=== PATIENT | female | born 2000 | race Caucasian/White ===

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

== ENCOUNTER 2020-01-22 08:50 | Emergency (ER) | payer MEDICAID, SELFPAY ==
[2020-01-22 08:53] VITALS: BP 151/93; PULSE 95; RESP 18; TEMP 36.6; O2SAT 98; BMI 49.4
--- NOTE | 2020-01-22 09:03 | US_ITS ---
WS: [id number] ULTRASOUND EARLY TECHNIQUE: Transabdominal sonography of the pelvis was performed. Followed by transvaginal sonography to better evaluate the uterus and ovaries. CLINICAL INFORMATION: vag bleeding LMP: 11/06/2019 Beta hCG: Unknown. COMPARISON: Ultrasound July 03, 2019 FINDINGS: Small amount of fluid in the cervix. UTERUS AND GESTATIONAL SAC Intrauterine gestations: Estimated gestational age: 12w0d Estimated delivery [place] rump length (CRL): 5.4 cm. heart motion: 160 BPM. Subchorionic hemorrhage: Subchorionic hematoma right lateral superior uterus. Subchorionic hematoma m easures 2.2 x 0.9 x 1.9 cm Suspected fibroid measuring 2.6 x 2.5 x 2.7 cm OVARIES Normal vascularity in both ovaries. Right ovary: Normal. Left ovary: Normal. FREE FLUID None. US/US OB lmt with transvaginal IMPRESSION: 1. Single live intrauterine . 2. Subchorionic hematoma right lateral superior uterus. Recommend short interv al follow-up. 3. Estimated gestational age; 12w0d. Estimated delivery August 05, 2020 4. Both ovaries are unremarkable. 5. No free fluid in the cul-de-sac.
--- NOTE | 2020-01-22 09:33 | W.ED.PREGNAN ---
HPI - General: Chief complaint: Vaginal Bleeding Stated complaint: 12 weeks /Bleeding Time Seen by Provider: 01/22/20 08:53 Source: patient Mode of arrival: ambulatory Limitations: no limitations History of Present Illness: Associated symptoms: Deny abdominal pain, dysuria, headache(s), malaise, nausea, syncope or vomiting Review of Systems Const: Denies: fever(s), chills, body aches, change in appetite or malaise Eyes: Denies: change in vision ENMT: Denies: throat pain Card: Denies: chest pain, lightheadedness or syncope Resp: Denies: dyspnea, productive cough or wheezing GI: Denies: abdominal pain, nausea or vomiting : Reports: vaginal bleeding; Denies: flank pain, difficulty voiding, dysuria or urinary frequency Musc: Denies: neck pain or back pain Neuro: Denies: headache(s) Psych: Denies: suicidal ideation or homicidal ideation PFSH ED PFSH: Medical History (Updated 01/22/20 @ 10:35 by Doris Menchaca) Anxiety Patient denies medical problems Denies history of: htn,dm,heart,lung,liver,kidney,thyroid,dvt/pe,herpes David-- s/o- w/o herpes hx Surgical History No history of previous surgery Family History Grandmother Thyroid condition maternal Unknown Patient denies medical problems Denies family history of: breast/ovarian/uterine/colon/prostate cancer,HTN,DM,stroke,heart disease,hypercholesterol Social History Smoking and tobacco status: former smoker Quit status (tobacco): has quit using tobacco Year quit tobacco: 03/28/2019 Former quit date comment: Stopped smoking due to Alcohol intake: never Physical Exam Const: COMMON NORMALS: no acute distress, patient oriented x3, no limitations, healthy appearing, alert and well nourished Eye: COMMON NORMALS: Equal, round and reactive pupils present PUPIL: Yes Equal, round and reactive pupils present Neck/C-Spine: COMMON NORMALS: full ROM Lymph: LYMPHATIC: no lymphadenopathy noted Resp: COMMON NORMALS: normal respiratory effort, No retractions, No use of accessory muscles, clear to auscultation bilaterally and percussion normal AUSCULTATION: clear to auscultation bilaterally PERCUSSION: percussion normal Cardio: COMMON NORMALS: regular rate and regular rhythm RATE: regular rate RHYTHM: regular rhythm GI: COMMON NORMALS: Normal to inspection, nondistended, normoactive bowel sounds present, Soft to palpation, non-tender, No hepatosplenomegaly present, no masses and no bruits INSPECTION: Yes normal to inspection AUSCULTATION: Yes normoactive bowel sounds PALPATION: Yes Soft to palpation and Yes No hepatosplenomegaly present : COMMON NORMALS: Yes no CVA tenderness BLADDER/KIDNEY EXAM: Yes no CVA tenderness Back/Pelvis: COMMON NORMALS: no CVA tenderness, thoracic and lumbar spine normal to inspection, no thoracic nor lumbar tenderness, thoraco-lumbar ROM normal and straight leg raise negative bilaterally Extremity: COMMON NORMALS: normal to inspection and full ROM Neuro: COMMON NORMALS: patient oriented x3 SENSORIUM/ORIENTATION: Yes alert Psych: COMMON NORMALS: mental status grossly normal, Normal thought process present, cooperative, normal affect, speech normal, activity/motor behavior normal, denies hallucinations, denies homicidal ideation and denies suicidal ideation SPEECH: Yes normal speech THOUGHT PROCESS: Normal thought process present Skin: COMMON NORMALS: no rashes or lesions noted, no wounds, turgor normal, no jaundice, no petechiae and no mottling GENERAL SKIN EXAM: no rashes or lesions noted and turgor normal Course Vital Signs: Vital signs: Vital Signs Temperature 97.9 F 01/22/20 08:53 Pulse Rate 95 01/22/20 08:53 Respiratory Rate 18 01/22/20 08:53 Blood Pressure 151/93 01/22/20 08:53 Pulse Oximetry 98 01/22/20 08:53 MDM - OB/Uterine Contractions MDM Narrative: Medical decision making narrative: Patient is well-appearing nontoxic in no acute distress. Patient denies any pelvic pain or back pain. Patient's labs do not reveal any concerning findings. Patient's H&H are stable. Patient's ultrasound reveals [facility] [address] [place] [address] Ultrasound Report Signed Patient: Griselda Berg #: [id number] : 2000Acct#:[id number] Age/Sex: FADM Date: 01/22/20 Loc: ERRoom/Bed: Attending Dr: Ordering Provider/Ordering MD: Doris Menchaca NP Date of Service: 01/22/20 Procedure(s): US OB lmt with transvaginal Accession Number(s): [id number] Report Number: [id number] WS: [id number] ULTRASOUND EARLY TECHNIQUE: Transabdominal sonography of the pelvis was performed. Followed by transvaginal sonography to better evaluate the uterus and ovaries. CLINICAL INFORMATION: vag bleeding LMP: 11/06/2019 Beta hCG: Unknown. COMPARISON: Ultrasound July 03, 2019 FINDINGS: Small amount of fluid in the cervix. UTERUS AND GESTATIONAL SAC Intrauterine gestations: Estimated gestational age: 12w0d Estimated delivery [place] rump length (CRL): 5.4 cm. heart motion: 160 BPM. Subchorionic hemorrhage: Subchorionic hematoma right lateral superior uterus. Subchorionic hematoma measures 2.2 x 0.9 x 1.9 cm Suspected fibroid measuring 2.6 x 2.5 x 2.7 cm OVARIES Normal vascularity in both ovaries. Right ovary: Normal. Left ovary: Normal. FREE FLUID None. US/US OB lmt with transvaginal IMPRESSION: 1. Single live intrauterine . 2. Subchorionic hematoma right lateral superior uterus. Recommend short interval follow-up. 3. Estimated gestational age; 12w0d. Estimated delivery August 05, 2020 4. Both ovaries are unremarkable. 5. No free fluid in the cul-de-sac. Patient does not need RhoGam based on patient's Rh type I will have patient follow-up with INJECTION MOLD TECHNICIAN for repeat ultrasound for follow-up I will also advise patient she needs to have her beta-hCG rechecked and 48 to 72 hours. I did discuss with patient return precautions as well as home care. Do not feel any further testing is warranted at this time patient is medically cleared and appropriate for discharge Lab Data: Labs: Lab Results 01/22/20 01/22/20 01/22/20 Range/Units 09:39 09:39 09:39 WBC 8.0 (4.5-13.0) 10^3/ uL RBC 4.28 (4.1-5.3) 10^6/u L Hgb 11.8 (11.5-15.3) g/dL Hct 37.2 (37.0-47.0) % MCV 86.9 (81-99) fL MCH 27.6 L (28.0-34.0) pg MCHC 31.7 (30.0-36.0) g/dL RDW 13.7 (12.1-15.1) % Plt Count 262 (130-400) 10^3/c mm MPV 8.3 (7.4-10.4) fL Neut % (Auto) 72.1 % Lymph % (Auto) 20.7 % [place] % (Auto) 4.9 % Eos % (Auto) 1.6 % Baso % (Auto) 0.3 % Neut # (Auto) 5.74 (1.8-8.0) 10^3/u L Lymph # (Auto) 1.7 (1.5-6.5) 10^3/u L [place] # (Auto) 0.4 (0.2-0.9) 10^3/u L Eos # (Auto) 0.1 (0.0-0.8) 10^3/u L Baso # (Auto) 0.0 (0.0-0.1) 10^3/u L Nucleated RBC % (a uto) 0 % Nucleated RBCs # 0.0 /100WBC Sodium 137 (136-145) mmol/L Potassium 3.8 (3.5-5.1) mmol/L Chloride 104 (98-107) mmol/L Carbon Dioxide 21 L (22-29) mmol/L Anion Gap 15.8 (5-19) BUN 5 L (6-20) mg/dL Creatinine 0.4 L (0.5-0.9) mg/dL GFR Calculation 205.6 H (90-130) mL/min Glucose 87 (65-115) mg/dL Calculated Osmolal ity 281 L (285-295) mOsm/k g Calcium 8.6 (8.5-10.5) mg/dL Ser , Ama i-Qnt 75670.00 mIU/mL Blood Type O Positive Rho(D) Type Positive Discharge Plan Discharge Clinical Impression: Threatened Condition: Stable Prescriptions: No Action prenat.vits,silke,[id number]-[id number] Tablet 1 tab PO DAILY RF: 0 Tylenol Extra Strength 500 mg Tablet 500 mg PO PRN RF: 0 Discharge Orders: Discharge Order (Routine); Ordered 01/22/20 Ordered By: Doris Menchaca Referrals: Lucien Guadalupe MD [Primary Care Provider] - Discharge Diet: Advance as tolerated Discharge Activity: Limit activity as instructed Activity Restrictions/Additional Instructions: Please follow up with OBGYN for repeat Beta HCG in 48-72 hours Please follow up for repeat Ultra Sound Please Pelvic rest as instructed Please reutn with abd pain or worsening of bleeding or any other concerns Coding Level of Care Code ED Finish Carpenter for Chg Fwd Exam Comprehensive
[2020-01-22 09:49] LABS: Basophils % 0.3 %; Eosinophils # 0.1 10^3/uL (0.0-0.8); Eosinophils % 1.6 %; Hematocrit 37.2 % (37.0-47.0); Hemoglobin 11.8 g/dL (11.5-15.3); Lymphocytes # 1.7 10^3/uL (1.5-6.5); Lymphocytes % 20.7 %; Mean Corpuscular HGB Conc 31.7 g/dL (30.0-36.0); Mean Corpuscular Hemoglobin 27.6 pg (28.0-34.0); Mean Corpuscular Volume 86.9 fL (81-99); Mean Platelet Volume 8.3 fL (7.4-10.4); Monocytes # 0.4 10^3/uL (0.2-0.9); Monocytes % 4.9 %; Neutrophils # 5.74 10^3/uL (1.8-8.0); Neutrophils % 72.1 %; Nucleated Red Blood Cells % 0 %; Platelet Count 262 10^3/cmm (130-400); Red Blood Count 4.28 10^6/uL (4.1-5.3); Red Cell Distribution Width 13.7 % (12.1-15.1)
[2020-01-22 10:20] LABS: Anion Gap 15.8 (5-19); Blood Urea Nitrogen 5 mg/dL (6-20); Calcium 8.6 mg/dL (8.5-10.5); Carbon Dioxide 21 mmol/L (22-29); Chloride 104 mmol/L (98-107); Glomerular Filtration Rate 205.6 mL/min (90-130); Glucose 87 mg/dL (65-115); Osmolality Calculated 281 mOsm/kg (285-295); Potassium 3.8 mmol/L (3.5-5.1); Sodium 137 mmol/L (136-145)
== END 2020-01-22 10:51 ==
PROVIDERS: Emergency Provider Registered Nurse; PCP Family Medicine
DX: O20.0 Threatened abortion (principal); Z3A.12 12 weeks gestation of pregnancy; Z87.891 Personal history of nicotine dependence
CPT/HCPCS: 12345; 36415; 76815; 76817; 80048; 84702; 85025; 86850; 86900; 86920; 99281; 99283

== ENCOUNTER 2020-02-28 17:32 | Emergency (ER) | payer BC, MEDICAID, SELFPAY ==
--- NOTE | 2020-02-28 17:39 | US_ITS ---
WS: [id number] LIMITED OBSTETRICAL ULTRASOUND HISTORY: bleeding - VIABILITY. COMPARISON: 01/24/2020. Presentation: Vertex. Cervix: Closed and normal length. Placenta: Anterior, no previa or abruption. Moderate-sized [place] posterior to the placenta. Grade: 0 HEART: FHR of 144 BPM. measurements: BPD = 3.8 cm = 17w4d HC = 14.4 cm = 17w4d Normal amniotic fluid. AGA by ultrasound: 17w4d GALINA by ultrasound: 08/03/2020 US/US OB limited [id number] IMPRESSION: 1. Single intrauterine gestation of 17 weeks 4 days with an EDC of 08/03/2020. 2. Closed cervix. 3. Anterior placenta with no previa or abruption. 4. Normal amniotic fluid.
[2020-02-28 17:46] VITALS: BP 152/109; PULSE 96; RESP 16; TEMP 36.9; O2SAT 99; BMI 47.1
== END 2020-02-28 21:45 ==
LOC: ER 17:39
PROVIDERS: Emergency Provider Emergency Medicine; PCP Family Medicine
DX: Z53.21 Procedure and treatment not carried out due to patient leaving prior to being seen by health care provider (principal)
CPT/HCPCS: 76815; 99281

== ENCOUNTER 2020-06-07 13:25 | Outpatient (CLI) | payer BC, SELFPAY ==
[2020-06-07 13:35] VITALS: BMI 49.8
[2020-06-07 14:01] VITALS: BP 135/80; PULSE 91
[2020-06-07 14:21] VITALS: BP 145/87; PULSE 88
[2020-06-07 14:38] LABS: Add Urine Culture? No; Bacteria Urine TRACE /hpf; Bilirubin Urine Neg (Negative); Blood Urine Neg (Negative); Glucose Urine UA Norm (Normal); Ketones Urine Negative (Negative); Leukocyte Esterase Urine Negative (Negative); Mucus Urine TRACE /hpf; Nitrate Urine Negative (Negative); Protein Urine Neg (Negative); Sulfosalicylic Acid Urine Negative (Negative); Urine Appearance Clear (CLEAR); Urine Color Yellow (Yellow); Urobilinogen Urine Norm (Negative); pH Urine 8.5 (5-7)
[2020-06-07 14:41] VITALS: BP 136/81; PULSE 96
== END 2020-06-07 14:55 | disposition home or self-care (01) ==
LOC: OPOB 13:28 → OBGYN 13:46
PROVIDERS: PCP Family Medicine; Visit Provider Family Medicine
DX: O26.899 Other specified pregnancy related conditions, unspecified trimester (principal); Z3A.00 Weeks of gestation of pregnancy not specified; R52 Pain, unspecified
CPT/HCPCS: 81001; 99211

== ENCOUNTER 2020-07-31 18:36 | Inpatient (IN) | payer BC, MEDICAID, SELFPAY ==
[2020-07-31 18:49] VITALS: BP 138/89; PULSE 105; TEMP 35.6
[2020-07-31 21:44] VITALS: RESP 17
[2020-07-31 21:57] LABS: Basophils % 0.2 %; Eosinophils % 0.4 %; Hematocrit 34.8 % (37.0-47.0); Lymphocytes # 1.7 10^3/uL (1.5-6.5); Lymphocytes % 18.4 %; Mean Corpuscular HGB Conc 31.6 g/dL (30.0-36.0); Mean Corpuscular Volume 82.3 fL (81-99); Mean Platelet Volume 9.2 fL (7.4-10.4); Monocytes # 0.8 10^3/uL (0.2-0.9); Monocytes % 8.3 %; Neutrophils % 72.4 %; Nucleated Red Blood Cells % 0 %; Platelet Count 301 10^3/cmm (130-400); Red Blood Count 4.23 10^6/uL (4.1-5.3); Red Cell Distribution Width 15.6 % (12.1-15.1)
[2020-07-31 22:06] VITALS: BMI 51.3
[2020-07-31] MEDS: miSOPROStol 100 mcg tablet 25 MCG VAGINAL (23:58)
[2020-08-01] VITALS (77 sets, daily range): BP systolic 98–170; BP diastolic 51–110; PULSE 65–93; RESP 17–18; TEMP 35.7–36.6; O2SAT 97–100
[2020-08-01] MEDS: miSOPROStol 100 mcg tablet 25 MCG VAGINAL ×2 (04:10→09:02)
[2020-08-01] MEDS: lactated ringers 1,000 ML 999 ML IV ×2 (13:25→22:47)
[2020-08-01] MEDS: fentaNYL 50 mcg/mL INJ 2mL IVP (13:58)
--- NOTE | 2020-08-01 14:09 | ANES.PREANE2 ---
Pre-Anesthetic Assessment Pre-Anesthetic Assessment: Height/Weight: Height 1.68 m Weight 144.242 kg Temp Pulse Resp BP 97.2 F L 72 18 153/99 08/01/20 13:09 08/01/20 14:03 08/01/20 13:58 08/01/20 14:03 Preop Diagnosis: IUP Proposed Procedure: epidrual Was Beta Marian taken within 24 hours: N/A Was Clonidine taken within 24 hours: N/A Social: Social History: Tobacco (history, quit this ) Exam: Pre-Anes Outpt Exam: alert, oriented x 3, clear to auscultation bilaterally and regular rate & rhythm Airway: Submandibular: WNL Cervical ROM: WNL MP: 3 Dentition: Full Pulmonary: Pulmonary: Sleep apnea CV/HEM: CV/HEM: HTN ( related but no meds needed) : : None reported Hepatic: Hepatic: None reported GI: GI: GERD Metabolic: Metabolic: Morbid obesity Musc/skel: Musc/skel: None reported Neuropsych: Neuropsych: Anxiety Anesthetic Plan: ASA status: 3 Anesthesia: Regional (specify below) Risk of > 500 ml blood loss (7ml/kg in children): No Meds/Allergies Current Medications: Current Medications Generic Name Dose Route Start Last Admin Trade Name Freq PRN Reason Stop Dose Admin Fentanyl 25 - 100 mcg 07/31/20 21:44 08/01/20 13:58 Fentanyl 50 Mcg/ Ml Inj 2ml IVP 25 mcg Q1H PRN Administration SEVERE PAIN Lactated Ringer's 1,000 mls @ 999 m ls/hr 08/01/20 13:12 08/01/20 13:25 Lactated Ringers IV 999 mls/hr .Q1H1M PRN Administration See label comment s PFSH Anesthesia PFSH: Medical History (Updated 01/30/20 @ 00:00 by ) Anxiety Patient denies medical problems Denies history of: htn,dm,heart,lung,liver,kidney,thyroid,dvt/pe,herpes Advid-- s/o- w/o herpes hx Surgical History No history of previous surgery Family History Grandmother Thyroid condition maternal Unknown Patient denies medical problems Denies family history of: breast/ovarian/uterine/colon/prostate cancer,HTN,DM,stroke,heart disease,hypercholesterol Social History (Updated 02/28/20 @ 17:52 by Jose Armando Palomares RN) Smoking and tobacco status: light tobacco smoker Quit status (tobacco): has quit using tobacco Year quit tobacco: 03/28/2019 Former quit date comment: Stopped smoking due to Alcohol intake: never Female Reproductive History: : 4 Data Anesthesia CBC & Chem 7: 07/31/20 19:56 Other Labs: Laboratory Results - last 48 hr 07/31/20 19:56 WBC 9.0 RBC 4.23 Hgb 11.0 L Hct 34.8 L MCV 82.3 MCH 26.0 L MCHC 31.6 RDW 15.6 H Plt Count 301 MPV 9.2 Neut % (Auto) 72.4 Lymph % (Auto) 18.4 [place] % (Auto) 8.3 Eos % (Auto) 0.4 Baso % (Auto) 0.2 Neut # (Auto) 6.50 Lymph # (Auto) 1.7 [place] # (Auto) 0.8 Eos # (Auto) 0.0 Baso # (Auto) 0.0 Nucleated RBC % (auto) 0 Nucleated RBCs # 0.0 Cardiac Studies: No Data to Display
--- NOTE | 2020-08-01 14:41 | ANES.PROC ---
Anesthesia Procedures Procedure/Date: 08/01/20 epidural Procedure Narrative: epidural complete, bolus given, epidural pump initiated with MARKETING INSTRUCTOR education given, vitals taken during procedure using OBIX system and satisfactory throughout, patient admits to decrease pain, report of procedure to OB RN Epidural: Time Out Performed: Yes Consents Signed: Procedure Consent Consent: requested by attending/covering physician, from patient, risks and benefits reviewed and patient agrees to proceed Lumbar Level: L3-L4 Epidural position: sitting Epidural procedure: sterile prep of area, 1% lidocaine to numb the area (3 mL), 18 g needle, negative for paresthesia passed, neg for paresthesia, test dose given, 1.5% xylocaine 1:200k epi (5 mL), 0.2% Ropivacaine bolus ml (5 mL), placed PCEA, no systemic response, sterile dressing applied, L.U.D. no apparent complications and 0.2% Ropiavacaine @ mls/hr (13 mL/hr)
[2020-08-01] MEDS: dextrose 5%-lactated ringers 1,000 ML 125 ML IV (14:45)
[2020-08-01] MEDS: oxytocin 30 UNIT/500 ML BAG IV (17:00)
[2020-08-01] MEDS: ondansetron 2 mg/ML SDV 2 mL 4 MG IVP (19:40)
--- NOTE | 2020-08-01 22:58 | PM.HP ---
Providers/Chief Complaint Admitting Physician: Lucien Guadalupe MD Primary Care Provider: Lucien Guadalupe MD Chief Complaint: INDUCTION History of Present Illness Griselda Berg is a 20 year old female who is a 4, para 1 with an EDC of 08/05/2020. She was admitted yesterday evening for attempted misoprostol cervical ripening for induction secondary to term and suspected large infant. She has a history of -induced hypertension during her last which required induction at 37 weeks gestation. She has had no problems through this with gestational hypertension. She has received 3 doses of misoprostol 25 mcg since admission. She was then started on Pitocin augmentation and presently is on a low dose Pitocin. She had spontaneous rupture membranes at around 1055 this morning with clear fluid obtained. She has slowly dilated throughout the day and presently is about 7 cm dilated. She does have epidural anesthesia which was placed earlier this afternoon. Overall, the heart tones have been reassuring. However, she has had some decelerations off and on and the presently does not tolerate much position change. Presently she remains at approximately -1 station. Maternal blood type was O+ with antibody screen negative. Hepatitis B, hepatitis C, RPR and HIV were negative. Rubella is immune and group B strep was negative. Her Glucola screen at 28 weeks was 108. Review of Systems Const: Denies: fever(s), chills, body aches, change in appetite or fatigue Eyes: Denies: change in vision or eye redness ENMT: Denies: throat pain or odynophagia Card: Denies: chest pain, palpitations or edema Resp: Denies: dyspnea, productive cough or non-productive cough GI: Reports: abdominal pain (Contraction pain which is improved greatly with epidural anesthesia.) and heartburn (Controlled with omeprazole.); Denies: constipation : Reports: amenorrhea (She is .); Denies: flank pain or urinary frequency Musc: Denies: neck pain, back pain or extremity swelling Neuro: Denies: headache(s) or seizure-like activity Psych: Denies: anxiety or depression Bennett/Lymph: Denies: easy bruising or enlarged lymph nodes All/Imm: Denies: urticaria or facial swelling Medications/Allergies Home Medications Medication Instructions Recorded Confirmed Last Taken Type prenat.vits,silke,bnz-izax-cqoef 1 tab PO DAILY 03/10/19 01/22/20 06/06/20 08:00 History acetaminophen [Tylenol Extra 500 mg PO PRN 01/22/20 01/22/20 Unknown History Strength] Allergies Allergy/AdvReac Type Severity Reaction Status Date / Time strawberry Allergy ALGY-Difficulty Verified 01/22/20 09:52 Swallowing PFSH Acute PFSH: Medical History (Updated 08/01/20 @ 23:09 by Lucien Guadalupe MD) Anxiety Patient denies medical problems Denies history of: htn,dm,heart,lung,liver,kidney,thyroid,dvt/pe,herpes David-- s/o- w/o herpes hx Surgical History No history of previous surgery Family History Grandmother Thyroid condition maternal Unknown Patient denies medical problems Denies family history of: breast/ovarian/uterine/colon/prostate cancer,HTN,DM,stroke,heart disease,hypercholesterol Social History (Updated 02/28/20 @ 17:52 by Jose Armando Palomares RN) Smoking and tobacco status: light tobacco smoker Quit status (tobacco): has quit using tobacco Year quit tobacco: 03/28/2019 Former quit date comment: Stopped smoking due to Alcohol intake: never Female Reproductive History: : 4 Vitals/I&O/Wt Last Vital Signs Temp 97.9 F 08/01/20 22:06 Pulse 82 08/01/20 22:33 Resp 18 08/01/20 13:58 BP 124/64 08/01/20 22:33 Pulse Ox 100 08/01/20 15:16 08/01/20 08/01/20 08/01/20 06:59 14:59 22:59 Intake Total 1000 / 1000 1087.433 / 2087.433 Output Total 300 / 300 Balance 1000 / 1000 787.433 / 1787.433 Weight last 48 hrs Weight 144.242 kg Physical Exam Const: COMMON NORMALS: no acute distress, alert and well nourished GENERAL APPEARANCE: cooperative, comfortable (She has epidural anesthesia in place.) and well kempt HENMT: COMMON NORMALS: hearing grossly normal bilaterally and moist oral mucous membranes Lymph: LYMPHATIC: no lymphadenopathy noted Resp: COMMON NORMALS: normal respiratory effort, No retractions, No use of accessory muscles and clear to auscultation bilaterally Cardio: COMMON NORMALS: regular rate, regular rhythm and No murmurs present (Cardio) GI: COMMON NORMALS: Soft to palpation and non-tender; negative for no masses (.) : COMMON NORMALS: Yes no CVA tenderness and Yes normal external appearance OB/EXTERNAL & SPECULUM: external exam normal; no bleeding MANUAL OB EXAM: dilated 7 cm, effaced 75% and station -1 AMNIOTIC FLUID: clear Back/Pelvis: COMMON NORMALS: no CVA tenderness and thoracic and lumbar spine normal to inspection Extremity: COMMON NORMALS: normal to inspection, full ROM, capillary refill normal and no pedal edema Neuro: COMMON NORMALS: patient oriented x3, CN's II-XII intact bilaterally, moves all extremities, no focal motor deficits and no sensory deficits noted Psych: COMMON NORMALS: mental status grossly normal, Normal thought process present, cooperative and normal affect Urinary Catheter Management^: Cifuentes: Cath Placed During This Visit: yes Reason for Continuing Indwelling Catheter: Required Immobilization for Trauma or Surgery or Anesthesia Urinary Catheter Date of Insertion: 08/01/20 Urinary Catheter Time of Insertion: 15:00 Data : 07/31/20 19:56 A&P Assessment and plan (1) Term : Patient is doing fair right now but infant is having some more questionable decelerations. If she does not deliver soon we may need to proceed with section secondary to failure to descend and nonreassuring heart tones. Presently, the variability is good however. Status: Acute Attestations Medical Necessity Statement*: This patient is 7 cm dilated in active labor and requires hospitalization. She will be here for greater than 2 midnights. Time Spent in Patient Care: 16 - 35 minutes Coding Level of Care Code Acute Distribution Transformer Assembler for Chg Fwd Diagnoses Term Z34.90
[2020-08-02] VITALS (54 sets, daily range): BP systolic 104–142; BP diastolic 56–87; PULSE 67–98; RESP 16–18; TEMP 36.1–37.4; O2SAT 94–100
[2020-08-02] MEDS: dextrose 5%-lactated ringers 1,000 ML 125 ML IV (05:12)
[2020-08-02] MEDS: lactated ringers 1,000 ML 999 ML IV (06:05)
[2020-08-02] MEDS: citric acid-sodium citrate 30 mL UDC PO (06:55)
[2020-08-02] MEDS: famotidine 20 mg/2 mL INJ IVP (06:55)
[2020-08-02] MEDS: metoclopramide 5 mg/mL SDV 2 mL 10 MG IVP (06:55)
[2020-08-02] MEDS: lactated ringers 1,000 ML 125 ML IV (07:06)
--- NOTE | 2020-08-02 08:32 | PM.OP ---
Operative Report Date of procedure: August 02, 2020 Pre-op Diagnosis: Failure to progress Post-op diagnosis: same Procedure Done: Primary low transverse Via Pfannenstiel skin incision Specimens removed/disposition: OP vertex weight 3250 g, 7 pounds 3 ounces, Apgars 8 and 9 Anesthesia: Epidural Estimated blood loss (mL): 600 IV fluids (mL): 1,000 Urine output (mL): 200 Condition: stable Disposition: floor Procedure: After informed consent the patient was taken to the OR where adequate epidural anesthesia was verified. She was prepped and draped in normal sterile fashion in dorsal supine position with a left lateral tilt. A Pfannenstiel skin incision was made and carried through to the underlying layer of fascia sharply. The fascial incision was extended laterally using the Mayos. The fascia was grasped with Tom clamps and the underlying rectus muscles were dissected off taking care to avoid injury to the underlying tissue. The peritoneum was entered bluntly using a hemostat. The incision site was then manually stretched. The bladder blade was inserted and the vesicouterine peritoneum was identified and entered sharply using the Metzenbaums. The bladder flap was then created digitally. The bladder blade was reinserted. Uterine incision was made in a transverse fashion in the lower uterine segment. Rupture of membranes was performed sharply and clear fluid was noted. Large cord was bulging from the incision site. The 's head was in OP position and the 's head was delivered atraumatically with the rest of the following immediately. The was then suctioned at delivery and the cord was clamped and cut. The infant was handed to the waiting pediatric nurse. Cord blood was obtained. The placenta was delivered with fundal pressure. The uterus was exteriorized from the abdomen and a dry sponge was used to clear the uterus of clots and debris. Uterine incision was then repaired using 0 chromic in a running locked fashion. A second layer of the same suture was used in an imbricating manner. There was a small amount of bleeding on both the left lateral and right aspects of the incision and 2 [id number] sutures using 0 chromic were performed for hemostasis. The uterus was then returned to the abdomen and reinspected for hemostasis. Irrigation was used to clear the gutters of clots and debris and the uterine incision was reinspected. The peritoneum was then reapproximated using 4-0 Vicryl in a running fashion. There was a moderate amount of bleeding from the midline rectus muscle that did not resolve using the Bovie. A single [id number] suture of 0 chromic was done for hemostasis. The subfascial tissue was then reinspected for hemostasis and the fascia was reapproximated using 0 Vicryl in a running fashion. The subcutaneous tissue was irrigated and any small bleeders were coagulated using the Bovie. The subcutaneous tissue was then reapproximated using 4-0 Vicryl in a running fashion. The skin was then reapproximated using 4-0 Vicryl on a Pasquale needle. Steri-Strips and a pressure bandage were applied and patient went to recovery in good condition. Sponge instrument and needle counts were correct. Associated Problem List Diagnoses (1) Failure to progress in second stage of labor: (2) Term : (3) Tobacco smoking affecting : (4) Obesity affecting : Qualifiers: Trimester: third trimester Qualified Code(s): O99.213 - Obesity complicating , third trimester (5) Supervision of other high risk pregnancies, third trimester:
--- NOTE | 2020-08-02 15:22 | PC.RESP ---
Smoking Cessation information sent to patient.
[2020-08-02] MEDS: ibuprofen 800 mg tablet PO ×2 (15:57→22:23)
[2020-08-02] MEDS: HYDROcodone-acetaminophen 5-325 mg Tablet PO (16:50)
[2020-08-02] MEDS: simethicone 80 mg Chew PO (16:50)
[2020-08-02] MEDS: docusate sodium 100 mg Capsule PO (18:01)
[2020-08-02] MEDS: ferrous sulfate EC 325 mg Tablet PO (18:01)
[2020-08-02 20:51] LABS: Hematocrit 30.8 % (37.0-47.0); Hemoglobin 9.6 g/dL (11.5-15.3); Mean Corpuscular HGB Conc 31.2 g/dL (30.0-36.0); Mean Corpuscular Hemoglobin 26.1 pg (28.0-34.0); Mean Corpuscular Volume 83.7 fL (81-99); Mean Platelet Volume 8.9 fL (7.4-10.4); Platelet Count 227 10^3/cmm (130-400); Red Blood Count 3.68 10^6/uL (4.1-5.3); Red Cell Distribution Width 15.4 % (12.1-15.1)
[2020-08-03] VITALS (9 sets, daily range): BP systolic 125–158; BP diastolic 80–95; PULSE 81–102; RESP 16–20; TEMP 36.6–36.9; O2SAT 97–99
[2020-08-03] MEDS: docusate sodium 100 mg Capsule PO ×2 (08:09→17:42)
[2020-08-03] MEDS: HYDROcodone-acetaminophen 5-325 mg Tablet PO ×2 (08:09→17:42)
[2020-08-03] MEDS: ferrous sulfate EC 325 mg Tablet PO ×2 (08:10→17:42)
[2020-08-03] MEDS: ibuprofen 800 mg tablet PO ×2 (08:10→16:04)
[2020-08-03] MEDS: prenatal vitamin Capsule 1 CAP PO (08:10)
--- NOTE | 2020-08-03 12:15 | P.PN_ITS ---
Subjective Subjective: Interval history: Doing well. Passing lots of flatus. Ambulating, tolerating a regular diet. Vitals/I&O/Wt Last Vital Signs Temp 98.5 F 08/03/20 08:00 Pulse 102 H 08/03/20 08:00 Resp 20 H 08/03/20 08:00 BP 132/89 08/03/20 08:00 Pulse Ox 97 08/03/20 04:00 08/02/20 08/03/20 08/03/20 22:59 06:59 14:59 Output Total 300 / 1700 800 / 2500 Balance -300 / 478.000 -800 / -322.000 Physical Exam Const: COMMON NORMALS: no acute distress and alert GENERAL APPEARANCE: cooperative and comfortable HENMT: COMMON NORMALS: normocephalic HEAD & SCALP: normocephalic Eye: COMMON NORMALS: Equal, round and reactive pupils present and EOMs intact bilaterally PUPIL: Yes Equal, round and reactive pupils present Resp: COMMON NORMALS: normal respiratory effort and clear to auscultation bilaterally AUSCULTATION: clear to auscultation bilaterally Cardio: COMMON NORMALS: regular rate and regular rhythm RATE: regular rate RHYTHM: regular rhythm GI: COMMON NORMALS: Soft to palpation and non-tender (Incision clean dry and intact) AUSCULTATION: Yes normoactive bowel sounds PALPATION: Yes Soft to palpation Extremity: GENERAL: No calf tenderness and Yes edema (vs obesity, nonpitting) Neuro: SENSORIUM/ORIENTATION: Yes alert Urinary Catheter Management^: Cifuentes: Cath Placed During This Visit: yes, but has since been removed by the nurse Reason for Continuing Indwelling Catheter: Decision to DC Catheter Urinary Catheter Date of Insertion: 08/01/20 Urinary Catheter Time of Insertion: 15:00 Date Urinary Catheter Removed: 08/02/20 Time Urinary Catheter Discontinued: 14:22 Data : 08/02/20 20:35 A&P Assessment and plan (1) Failure to progress in second stage of labor: Status: Acute (2) Term : Status: Acute (3) Tobacco smoking affecting : Status: Acute (4) Obesity affecting : Status: Acute Qualifiers: Trimester: third trimester Qualified Code(s): O99.213 - Obesity complicating , third trimester (5) Status post section routine follow-up: Postop day #1 doing well. The patient is very anxious to get home. Think if she is doing well this evening and her pain is well controlled still she can be discharged home. Status: Acute Attestations Medical Necessity Statement*: Routine postoperative and care. 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
--- NOTE | 2020-08-03 19:04 | PC.NURSE ---
Called Dr. Sims with vital signs, MD orders for patient to discharge home.
--- NOTE | 2020-08-28 12:23 | PM.DCS ---
Discharge Providers Date of Admission: 07/31/20 18:36 Date of Discharge: August 03, 2020 Attending Provider at Admission: Lucien Guadalupe MD Attending Provider at Discharge: Lucien Guadalupe MD Primary Care Provider: Lucien Guadalupe MD Diagnoses at Discharge Discharge Diagnosis (1) Failure to progress in second stage of labor: Status: Acute (2) Term : Status: Acute (3) Tobacco smoking affecting : Status: Acute Permanent problem details: Pre-: 7 cig/day OBI: 3 cig/day (4) Obesity affecting : Status: Acute Qualifiers: Trimester: third trimester Qualified Code(s): O99.213 - Obesity complicating , third trimester (5) Status post section routine follow-up: Status: Acute Reason for Visit Reason for Visit: INDUCTION Hospital Course Hospital Course This is a 20-year-old G4 now P2 who underwent primary section secondary to failure to progress. The patient had an uncomplicated postoperative course. She was ambulating, tolerating a regular diet, had very good pain control and was requesting discharge home. Physical Exam Narrative: EXAM NARRATIVE: She is alert and sitting up in bed and appears comfortable. Her abdomen really is not tender. Her incision is clean dry and intact. She does have 1+ pitting edema that is difficult to distinguish from her obesity. No calf tenderness. Urinary Catheter Management^: Cifuentes: Cath Placed During This Visit: yes, but has since been removed by the nurse Reason for Continuing Indwelling Catheter: Decision to DC Catheter Urinary Catheter Date of Insertion: 08/01/20 Urinary Catheter Time of Insertion: 15:00 Date Urinary Catheter Removed: 08/02/20 Time Urinary Catheter Discontinued: 14:22 Discharge Data Vitals: Last Vital Signs Temp 97.8 F 08/03/20 19:03 Pulse 92 08/03/20 19:03 Resp 17 08/03/20 19:03 BP 130/84 08/03/20 19:03 Pulse Ox 98 08/03/20 19:03 Discharge Plan Discharge Patient Disposition: Home Condition: Stable Prescriptions: New ibuprofen 800 mg Tablet 800 mg PO TID PRN (Reason: Abdominal Discomfort) Qty: 30 RF: 0 hydrocodone-acetaminophen 5-325 mg Tablet 1 - 2 tab PO Q4H PRN (Reason: Moderate To Severe Pain) Qty: 15 RF: 0 DOK 100 mg Capsule 100 mg PO BID Qty: 60 RF: 0 Continued prenat.vits,silke,[id number]-phbt-pqzmm Tablet 1 tab PO DAILY RF: 0 Discontinued acetaminophen [Tylenol Extra Strength] 500 mg Tablet 500 mg PO PRN RF: 0 Discharge Orders: Discharge Order (Routine); Ordered 08/03/20 Ordered By: Lina Sims Referrals: Lina Sims MD [Physician] - 08/07/20 10:15 am (Your incision check appointment has been scheduled for 08/07/2020 at 10:[address] Sims.) Lucien Guadalupe MD [Primary Care Provider] - 09/09/20 2:30 pm (Your 6 week check has been scheduled for 09/09/2020 at 2:[address] Guadalupe.) Discharge Diet: Usual diet Discharge Activity: Limit activity as instructed Patient Instructions: Depression (GEN), Pre-eclampsia and Eclampsia (DC), Bleeding (DC), OB - John/Bethany, OB Discharge Report, OB Anesthesia Instructions, OB Food/Drug Interaction Guide, Opioid Safety, OB Home Care, OB Proud Parent Packet Discharge Attestations Time Spent in Discharge Care*: less than 30 min Quality Metrics Clinical Quality Measures During this hospital stay, did patient experience: None Coding Level of Care Code Acute Chg FW DC note Diagnoses Failure to progress in second stage of labor O62.2 Term Z34.90 Tobacco smoking affecting O99.330 Obesity affecting O99.213 Trimester: third trimester Status post section routine follow-up Z39.2; Z98.891
== END 2020-08-03 19:09 | disposition home or self-care (01) | DRG 788 ==
PROVIDERS: Family Medicine; Admitting Provider Family Medicine; PCP Family Medicine; Visit Provider Family Medicine
PROC: 10D00Z1 Extraction of Products of Conception, Low, Open Approach (ICD-10-PCS; CPT 59514; principal; 2020-08-02 07:30)
DX: O32.4XX0 Maternal care for high head at term, not applicable or unspecified (principal); Z37.0 Single live birth; O76 Abnormality in fetal heart rate and rhythm complicating labor and delivery; O99.344 Other mental disorders complicating childbirth; F41.9 Anxiety disorder, unspecified; O99.334 Smoking (tobacco) complicating childbirth; F17.210 Nicotine dependence, cigarettes, uncomplicated; O99.214 Obesity complicating childbirth; E66.01 Morbid (severe) obesity due to excess calories; Z3A.39 39 weeks gestation of pregnancy
CPT/HCPCS: 36415; 51702; 59025; 59409; 85025; 85027; 99211; J0690; J1885; J2274; J2405; J2765; J2795; J3010; J3490; J7030

== ENCOUNTER → 2020-12-09 09:09 | Outpatient (BNVA) | payer BC, MEDICAID, SELFPAY | PROVIDERS: PCP Family Medicine; Referring Provider Family Medicine; Visit Provider Specialist | DX: R56.9 Unspecified convulsions (principal); F17.200 Nicotine dependence, unspecified, uncomplicated | CPT/HCPCS: 95816 ==

== ENCOUNTER → 2021-07-30 12:31 | Outpatient (BNVA) | payer BC, MEDICAID, SELFPAY | PROVIDERS: PCP Family Medicine; Referring Provider Family Medicine; Visit Provider Specialist | DX: G62.89 Other specified polyneuropathies (principal) | CPT/HCPCS: 95913 ==

== ENCOUNTER → 2021-08-30 15:36 | Outpatient (BNVA) | payer BC, MEDICAID, SELFPAY | PROVIDERS: PCP Family Medicine; Visit Provider Registered Nurse Neonatal Intensive Care | DX: Z32.00 Encounter for pregnancy test, result unknown (principal) | CPT/HCPCS: 81025 ==

== ENCOUNTER 2021-09-24 17:46 | Emergency (ER) | payer BC, MEDICAID, SELFPAY ==
[2021-09-24 18:44] VITALS: PULSE 64; RESP 18; TEMP 36.2; O2SAT 100; BMI 45.9
--- NOTE | 2021-09-24 19:19 | USR_ITS ---
PROCEDURE INFORMATION: Exam: US First Trimester, Transabdominal and US , Transvaginal Exam date and time: 09/24/2021 8:10 PM Age: 21 years old Clinical indication: Lmp or gestational age (in weeks): 11w 2d; Other: Passing clots today; ; Patient HX: G5-p2-a2-l2; Additional info: Threatened miscarriage LABS AND CLINICAL REPORTS: Serum Choriogonadotropin (HCG): 50270 mIU/mL Last menstrual period start date: 07/07/2021 Gestational age (Established): 11 w 2 d Estimated due date (Established): 04/13/2022 TECHNIQUE: Imaging protocol: Real-time transabdominal obstetrical ultrasound of the maternal pelvis and a first trimester , less than 14 weeks 0 days, with image documentation. Transvaginal imaging was used for better evaluation of the fetus, adnexa, and/or cervix. COMPARISON: US OB >= 14 weeks fetus [id number] 03/18/2020 11:26 AM FINDINGS: Gestation: Intrauterine gestation is visualized. pole is visualized. No yolk sac is visualized. Embryonic/ heart rate: 167 bpm Extra-embryonic membranes/Placenta: Unremarkable. No subchorionic bleed. Amniotic fluid: Suspected small amniotic band without limb involvement, consider follow-up exam for reassessment. BIOMETRY: Gestational age (AUA): 11 w 3 d Estimated due date (AUA): 04/12/2022 [place]-Rump length (CRL): 47.8 mm. EGA (CRL) is 11 w 3 d MATERNAL: Uterus: Uterus measures 12.4 cm x 6.7 cm x 8.5 cm. Cervix: Cervical length measures 5 cm. Right ovary/adnexa: Right ovary not visualized. Left ovary/adnexa: Left adnexa 10.6 cm cyst may be corpus luteal in nature, color blood flow is seen about the structure. Intraperitoneal space: No intraperitoneal free fluid. US/US OB <= 14 weeks fetus [id number] IMPRESSION: 1. Single intrauterine without acute abnormality. 2. Left adnexa 10.6 cm cyst may be corpus luteal in nature, color blood flow is seen about the structure. 3. Right ovary not visualized. 4. Suspected small amniotic band without limb involvement, consider follow-up exam for reassessment.
--- NOTE | 2021-09-24 19:24 | ED_ITS ---
HPI - General: Chief complaint: Vaginal Bleeding Stated complaint: 11 Weeks spotting Time Seen by Provider: 09/24/21 18:45 Source: patient Mode of arrival: ambulatory Limitations: no limitations History of Present Illness: 21-year-old female who is roughly 10 weeks . She states that she has had some bleeding today and passing some small clots. She denies any vomiting or diarrhea. Denies any previous miscarriages. States she had some slight cramping that is improved denies any pain currently denies any lightheadedness. Associated symptoms: Deny abdominal pain, headache(s), nausea or vomiting Review of Systems Const: Denies: fever(s), chills, body aches or change in appetite Eyes: Denies: blurry vision or eye discomfort ENMT: Denies: throat pain or dental pain Card: Denies: chest pain Resp: Denies: dyspnea GI: Denies: abdominal pain, nausea, vomiting or diarrhea : Reports: vaginal bleeding Musc: Denies: neck pain or back pain Skin/Breast: Denies: rash Neuro: Denies: headache(s) Psych: Denies: depression Bennett/Lymph: Denies: easy bruising All/Imm: Denies: urticaria PFSH ED PFSH: Medical History (Updated 09/24/21 @ 20:59 by Krista Valdez MD) Anxiety Patient denies medical problems Denies history of: htn,dm,heart,lung,liver,kidney,thyroid,dvt/pe,herpes David-- s/o- w/o herpes hx Surgical History No history of previous surgery Family History Grandmother Thyroid condition maternal Unknown Patient denies medical problems Denies family history of: breast/ovarian/uterine/colon/prostate cancer,HTN,DM,stroke,heart disease,hypercholesterol Social History Smoking and tobacco status: current every day smoker Quit status (tobacco): has quit using tobacco Year quit tobacco: 03/28/2019 Former quit date comment: Stopped smoking due to Alcohol intake: never Physical Exam Const: COMMON NORMALS: no acute distress, patient oriented x3 and healthy appearing HENMT: COMMON NORMALS: normocephalic and atraumatic HEAD & SCALP: normocephalic and atraumatic Eye: COMMON NORMALS: Equal, round and reactive pupils present and EOMs intact bilaterally PUPIL: Yes Equal, round and reactive pupils present Neck/C-Spine: COMMON NORMALS: full ROM and supple Chest: COMMONS NORMALS: normal inspection of the chest and normal palpation of entire chest wall Resp: COMMON NORMALS: normal respiratory effort, No retractions, No use of accessory muscles and clear to auscultation bilaterally AUSCULTATION: clear to auscultation bilaterally Cardio: COMMON NORMALS: regular rate, regular rhythm and No murmurs present (Cardio) RATE: regular rate RHYTHM: regular rhythm GI: COMMON NORMALS: Normal to inspection, nondistended, normoactive bowel sounds present, Soft to palpation, non-tender and no masses PALPATION: Yes Soft to palpation Extremity: COMMON NORMALS: normal to inspection and full ROM Neuro: COMMON NORMALS: patient oriented x3, moves all extremities and no focal motor deficits Psych: COMMON NORMALS: mental status grossly normal, Normal thought process present and cooperative THOUGHT PROCESS: Normal thought process present Skin: COMMON NORMALS: no rashes or lesions noted and no wounds GENERAL SKIN EXAM: no rashes or lesions noted Course Vital Signs: Vital signs: Vital Signs Temperature 97.1 F L 09/24/21 18:44 Pulse Rate 64 09/24/21 18:44 Respiratory Rate 18 09/24/21 18:44 Pulse Oximetry 100 09/24/21 18:44 Oxygen Delivery Me thod 09/24/21 18:44 MDM - OB/Uterine Contractions Medical Decision Making Patient presents here with some vaginal bleeding with a threatened miscarriage h er ultrasound showed IUP consistent with dates with good heart tones. She did have a mass in her left ovary likely a cyst patient is having minimal pain her bleeding is improved I think less likely that has been a heterotropic ectopic . She is to follow-up with her OB in 1 to 2 days and return if worsening she understands agrees to plan. Lab Data : 09/24/21 19:04 Laboratory Results WBC 8.8 10^3/uL (4.0-10.0) 09/24/21 19:04 RBC 4.41 10^6/uL (4.1-5.3) 09/24/21 19:04 Hgb 12.2 g/dL (11.5-15.3) 09/24/21 19:04 Hct 38.4 % (37.0-47.0) 09/24/21 19:04 MCV 87.1 fl (81-99) 09/24/21 19:04 MCH 27.7 pg (28.0-34.0) L 09/24/21 19:04 MCHC 31.8 g/dL (30.0-36.0) 09/24/21 19:04 RDW 13.3 % (12.1-15.1) 09/24/21 19:04 Plt Count 281 10^3/cmm (130-400) 09/24/21 19:04 MPV 8.6 fL (7.4-10.4) 09/24/21 19:04 Neut % (Auto) 71.9 % 09/24/21 19:04 Lymph % (Auto) 20.3 % 09/24/21 19:04 [place] % (Auto) 4.3 % 09/24/21 19:04 Eos % (Auto) 3.0 % 09/24/21 19:04 Baso % (Auto) 0.3 % 09/24/21 19:04 Neut # (Auto) 6.31 10^3/uL (1.8-7.7) 09/24/21 19:04 Lymph # (Auto) 1.8 10^3/uL (0.8-4.8) 09/24/21 19:04 [place] # (Auto) 0.4 10^3/uL (0.2-0.9) 09/24/21 19:04 Eos # (Auto) 0.3 10^3/uL (0.0-0.8) 09/24/21 19:04 Baso # (Auto) 0.0 10^3/uL (0.0-0.1) 09/24/21 19:04 Nucleated RBC % (auto) 0 % 09/24/21 19:04 Nucleated RBCs # 0.0 /100WBC 09/24/21 19:04 Ser , Semi-Qnt 66336.00 mIU/mL 09/24/21 19:04 Discharge Plan Discharge Patient Disposition: Home Clinical Impression: Threatened miscarriage Condition: Stable Prescriptions: No Action ondansetron 8 mg tablet,disintegrating 8 mg PO Q8H PRN (Reason: nausea and vomiting) 4 Days Qty: 14 0RF ibuprofen 800 mg Tablet 800 mg PO TID PRN (Reason: Abdominal Discomfort) Qty: 30 0RF Discharge Orders: Discharge ED (Routine); Ordered 09/24/21 Ordered By: Krista Valdez Referrals: Lucien Guadalupe MD [Primary Care Provider] - Discharge Diet: Advance as tolerated Discharge Activity: Resume usual activity Patient Instructions: Threatened Miscarriage (ED) Stand Alone Forms: Work/School Release Coding Level of Care Code ED Materials Analyst for Chg Fwd Exam Comprehensive
[2021-09-24 19:45] LABS: Basophils % 0.3 %; Eosinophils # 0.3 10^3/uL (0.0-0.8); Hematocrit 38.4 % (37.0-47.0); Hemoglobin 12.2 g/dL (11.5-15.3); Lymphocytes # 1.8 10^3/uL (0.8-4.8); Lymphocytes % 20.3 %; Mean Corpuscular HGB Conc 31.8 g/dL (30.0-36.0); Mean Corpuscular Hemoglobin 27.7 pg (28.0-34.0); Mean Corpuscular Volume 87.1 fl (81-99); Mean Platelet Volume 8.6 fL (7.4-10.4); Monocytes # 0.4 10^3/uL (0.2-0.9); Monocytes % 4.3 %; Neutrophils # 6.31 10^3/uL (1.8-7.7); Neutrophils % 71.9 %; Nucleated Red Blood Cells % 0 %; Platelet Count 281 10^3/cmm (130-400); Red Blood Count 4.41 10^6/uL (4.1-5.3); Red Cell Distribution Width 13.3 % (12.1-15.1); White Blood Count 8.8 10^3/uL (4.0-10.0)
[2021-09-24 21:13] VITALS: BP 150/120; PULSE 78; RESP 18; O2SAT 100
== END 2021-09-24 21:14 | disposition home or self-care (01) ==
PROVIDERS: Emergency Provider Emergency Medicine; PCP Family Medicine
DX: O20.0 Threatened abortion (principal); Z3A.11 11 weeks gestation of pregnancy; O99.331 Smoking (tobacco) complicating pregnancy, first trimester; F17.210 Nicotine dependence, cigarettes, uncomplicated
CPT/HCPCS: 36415; 76801; 84702; 85025; 99284

== ENCOUNTER 2021-10-02 06:13 | Emergency (ER) | payer BC, MEDICAID, SELFPAY ==
[2021-10-02 06:21] VITALS: BP 156/114; PULSE 91; RESP 22; TEMP 37; O2SAT 100; BMI 47.2
--- NOTE | 2021-10-02 06:22 | PC.NURSE ---
patient blood glucose is 90
[2021-10-02 06:26] VITALS: BP 135/73; PULSE 78; RESP 22; O2SAT 100
[2021-10-02] MEDS: ondansetron 2 mg/ML SDV 2 mL 4 MG IVP (06:33)
--- NOTE | 2021-10-02 06:38 | ED_ITS ---
HPI - Female Genitourinary General: Chief complaint: Urogenital-Female Stated complaint: 12 WEEKS /BLEEDING Time Seen by Provider: 10/02/21 06:21 Source: patient Mode of arrival: ambulatory Limitations: no limitations History of Present Illness: states she has been having vaginal bleedi ng that started at 4 AM. States that bleeding been heavy in nature has been passing some clots has abdominal pain 7 out of 10. Improving factors denies any fever Associated symptoms: Reports abdominal pain; Deny headache(s) Review of Systems Const: Denies: fever(s), chills, body aches or change in appetite Eyes: Denies: blurry vision or eye discomfort ENMT: Denies: throat pain or dental pain Card: Denies: chest pain Resp: Denies: dyspnea GI: Reports: abdominal pain : Reports: vaginal bleeding Musc: Denies: neck pain or back pain Skin/Breast: Denies: rash Neuro: Denies: headache(s) Psych: Denies: depression Bennett/Lymph: Denies: easy bruising All/Imm: Denies: urticaria PFSH ED PFSH: Medical History (Updated 10/02/21 @ 08:09 by Krista Valdez MD) Anxiety Patient denies medical problems Denies history of: htn,dm,heart,lung,liver,kidney,thyroid,dvt/pe,herpes David-- s/o- w/o herpes hx Surgical History No history of previous surgery Family History Grandmother Thyroid condition maternal Unknown Patient denies medical problems Denies family history of: breast/ovarian/uterine/colon/prostate cancer,HTN,DM,stroke,heart disease,hypercholesterol Social History Smoking and tobacco status: current every day smoker Quit status (tobacco): has quit using tobacco Year quit tobacco: 03/28/2019 Former quit date comment: Stopped smoking due to Alcohol intake: never Physical Exam Const: COMMON NORMALS: no acute distress, patient oriented x3 and healthy appearing HENMT: COMMON NORMALS: normocephalic and atraumatic HEAD & SCALP: normocephalic and atraumatic Eye: COMMON NORMALS: Equal, round and reactive pupils present and EOMs intact bilaterally PUPIL: Yes Equal, round and reactive pupils present Neck/C-Spine: COMMON NORMALS: full ROM and supple Chest: COMMONS NORMALS: normal inspection of the chest and normal palpation of entire chest wall Resp: COMMON NORMALS: normal respiratory effort, No retractions, No use of accessory muscles and clear to auscultation bilaterally AUSCULTATION: clear to auscultation bilaterally Cardio: COMMON NORMALS: regular rate, regular rhythm and No murmurs present (Cardio) RATE: regular rate RHYTHM: regular rhythm GI: COMMON NORMALS: Normal to inspection, nondistended, normoactive bowel sounds present, Soft to palpation, non-tender and no masses PALPATION: Yes Soft to palpation Extremity: COMMON NORMALS: normal to inspection and full ROM Neuro: COMMON NORMALS: patient oriented x3, moves all extremities and no focal motor deficits Psych: COMMON NORMALS: mental status grossly normal, Normal thought process present and cooperative THOUGHT PROCESS: Normal thought process present Skin: COMMON NORMALS: no rashes or lesions noted and no wounds GENERAL SKIN EXAM: no rashes or lesions noted Course Vital Signs: Vital signs: Vital Signs Temperature 98.6 F 10/02/21 06:21 Pulse Rate 89 10/02/21 08:26 Respiratory Rate 16 10/02/21 08:26 Blood Pressure 126/72 10/02/21 08:26 Pulse Oximetry 99 10/02/21 08:26 Oxygen Delivery Me thod 10/02/21 08:26 MDM - Female Medical Decision Making Patient presents here with a likely miscarriage pelvic exam here showed small amount of blood in the vaginal vault no products at the cervix no blood clots h er bleeding is slowed her hemoglobin is normal she stable for discharge she is to follow-up with her OB in 1 to 2 days she is return if her bleeding worsens she understands and agrees to plan. Lab Data : 10/02/21 06:26 10/02/21 06:26 Radiology Impressions Pelvic/Transvag US 10/02/21 07:01 IMPRESSION: 1. Incomplete spontaneous . Retained products of the conception along the endocervical canal with continued heterogeneity and thickening of the endometrium. No pole or cardiac activity identified on today's exam. 2. Large LEFT adnexal cyst measuring 11.8 x 8.9 x 10.9 cm. Similar to the prior study. Due to the large size torsion of the LEFT adnexa is a concern. Laboratory Results WBC 12.1 10^3/uL (4.0-10.0) H 10/02/21 06:26 RBC 4.65 10^6/uL (4.1-5.3) 10/02/21 06:26 Hgb 13.1 g/dL (11.5-15.3) 10/02/21 06:26 Hct 39.7 % (37.0-47.0) 10/02/21 06:26 MCV 85.4 fl (81-99) 10/02/21 06:26 MCH 28.2 pg (28.0-34.0) 10/02/21 06:26 MCHC 33.0 g/dL (30.0-36.0) 10/02/21 06:26 RDW 13.4 % (12.1-15.1) 10/02/21 06:26 Plt Count 288 10^3/cmm (130-400) 10/02/21 06:26 MPV 8.8 fL (7.4-10.4) 10/02/21 06:26 Neut % (Auto) 76.9 % 10/02/21 06:26 Lymph % (Auto) 16.1 % 10/02/21 06:26 [place] % (Auto) 4.5 % 10/02/21 06:26 Eos % (Auto) 1.9 % 10/02/21 06:26 Baso % (Auto) 0.3 % 10/02/21 06:26 Neut # (Auto) 9.30 10^3/uL (1.8-7.7) H 10/02/21 06:26 Lymph # (Auto) 2.0 10^3/uL (0.8-4.8) 10/02/21 06:26 [place] # (Auto) 0.6 10^3/uL (0.2-0.9) 10/02/21 06:26 Eos # (Auto) 0.2 10^3/uL (0.0-0.8) 10/02/21 06:26 Baso # (Auto) 0.0 10^3/uL (0.0-0.1) 10/02/21 06:26 Nucleated RBC % (auto) 0 % 10/02/21 06:26 Nucleated RBCs # 0.0 /100WBC 10/02/21 06:26 Sodium 132 mmol/L (136-145) L 10/02/21 06:26 Potassium 3.5 mmol/L (3.5-5.1) 10/02/21 06:26 Chloride 98 mmol/L (98-107) 10/02/21 06:26 Carbon Dioxide 20 mmol/L (22-29) L 10/02/21 06:26 Anion Gap 17.5 (5-19) 10/02/21 06:26 BUN 8 mg/dL (6-20) 10/02/21 06:26 Creatinine 0.4 mg/dL (0.5-0.9) L 10/02/21 06:26 GFR Calculation 201.5 mL/min (90-130) H 10/02/21 06:26 Glucose 86 mg/dL (65-115) 10/02/21 06:26 Calculated Osmolality 272 mOsm/kg (285-295) L 10/02/21 06:26 Calcium 9.2 mg/dL (8.5-10.5) 10/02/21 06:26 Total Bilirubin 0.4 mg/dL (0.15-1.2) 10/02/21 06:26 AST 19 U/L (0-32) 10/02/21 06:26 ALT 10 U/L (0-33) 10/02/21 06:26 Alkaline Phosphatase 50 IU/L (35-105) 10/02/21 06:26 Total Protein 6.9 g/dL (6.6-8.7) 10/02/21 06:26 Albumin 4.2 g/dL (3.5-5.2) 10/02/21 06:26 Globulin 2.7 g/dL (1.3-4.6) 10/02/21 06:26 Ser , Semi-Qnt 69577.00 mIU/mL 10/02/21 06:26 Discharge Plan Discharge Patient Disposition: Home Clinical Impression: Incomplete miscarriage Condition: Stable Prescriptions: No Action ondansetron 8 mg tablet,disintegrating 8 mg PO Q8H PRN (Reason: nausea and vomiting) 4 Days Qty: 14 0RF ibuprofen 800 mg Tablet 800 mg PO TID PRN (Reason: Abdominal Discomfort) Qty: 30 0RF Discharge Orders: Discharge ED (Routine); Ordered 10/02/21 Ordered By: Krista Valdez Referrals: Lina Sims MD [Primary Care Provider] - 1-3 days Discharge Diet: Advance as tolerated Discharge Activity: Use walker/crutches as instructed Patient Instructions: Miscarriage (ED) Coding Level of Care Code ED Electric Meter Repairer Helper for Chg Fwd Exam Comprehensive
[2021-10-02 06:40] LABS: Basophils % 0.3 %; Eosinophils # 0.2 10^3/uL (0.0-0.8); Eosinophils % 1.9 %; Hematocrit 39.7 % (37.0-47.0); Hemoglobin 13.1 g/dL (11.5-15.3); Lymphocytes % 16.1 %; Mean Corpuscular Hemoglobin 28.2 pg (28.0-34.0); Mean Corpuscular Volume 85.4 fl (81-99); Mean Platelet Volume 8.8 fL (7.4-10.4); Monocytes # 0.6 10^3/uL (0.2-0.9); Monocytes % 4.5 %; Neutrophils % 76.9 %; Nucleated Red Blood Cells % 0 %; Platelet Count 288 10^3/cmm (130-400); Red Blood Count 4.65 10^6/uL (4.1-5.3); Red Cell Distribution Width 13.4 % (12.1-15.1); White Blood Count 12.1 10^3/uL (4.0-10.0)
[2021-10-02] MEDS: morphine 4 mg/mL SDV 1 mL IVP (06:41)
--- NOTE | 2021-10-02 07:01 | US_ITS ---
WS: [id number] TRANSABDOMINAL PELVIC AND TRANSVAGINAL PELVIC ULTRASOUND HISTORY: threatened miscarriage COMPARISON: 09/24/2021 Uterus: 12.4 cm x 8.6 cm x 6.5 cm. Enlarged anteverted uterus. Endometrium: Thickened endometrium with no intrauterine gestation. Endometrium measures 3.0 cm. There are a few small cystic areas scattered throughout the endometrium. Increased thickening and increase d echogenicity along the lower endocervical segment suggesting retained products of the conception. T here is no increased vascularity identified. Right ovary: 2.3 cm x 2.8 cm x 1.8 cm. Poorly visualized. No abnormality identified. Left ovary: LEFT ovary is not identified. Within the LEFT adnexa there is a large cyst measuring 11.8 x 8.9 x 10.9 cm. This may be associated with the LEFT ovary. This cyst was also described on the justyna or examination and very similar in size. No free fluid. US/US pelvic with transvaginal IMPRESSION: 1. Incomplete spontaneous . Retained products of the conception along the endocervical canal with continued heterogeneity and thickening of the endom etrium. No pole or cardiac activity identified on today's exam. 2. Large LEFT adnexal cyst measuring 11.8 x 8.9 x 10.9 cm. Similar to the prio r study. Due to the large size torsion of the LEFT adnexa is a concern.
--- NOTE | 2021-10-02 07:10 | PC.NURSE ---
Report received from practice architect RN
[2021-10-02 07:35] LABS: Alanine Aminotransferase 10 U/L (0-33); Albumin Level 4.2 g/dL (3.5-5.2); Alkaline Phosphatase 50 IU/L (35-105); Anion Gap 17.5 (5-19); Aspartate Amino Transferase 19 U/L (0-32); Blood Urea Nitrogen 8 mg/dL (6-20); Calcium 9.2 mg/dL (8.5-10.5); Carbon Dioxide 20 mmol/L (22-29); Chloride 98 mmol/L (98-107); Globulin 2.7 g/dL (1.3-4.6); Glomerular Filtration Rate 201.5 mL/min (90-130); Glucose 86 mg/dL (65-115); Osmolality Calculated 272 mOsm/kg (285-295); Potassium 3.5 mmol/L (3.5-5.1); Sodium 132 mmol/L (136-145); Total Bilirubin 0.4 mg/dL (0.15-1.2); Total Protein 6.9 g/dL (6.6-8.7)
[2021-10-02 07:59] VITALS: BP 146/93; PULSE 66; RESP 18; O2SAT 98
[2021-10-02 08:26] VITALS: BP 126/72; PULSE 89; RESP 16; O2SAT 99
[2021-10-02] MEDS: miSOPROStol 200 mcg Tablet 800 MCG SUBLINGUAL (08:27)
--- NOTE | 2021-10-02 11:01 | DCPLANNER ---
warehouse operations manager had message to schedule a follow up appointment for patient with Dr. Sims, primary care physician. Case manger called [facility], gave clinic patients information. A follow up appointment was scheduled for Thursday, October 07, 2021 at 9:[address] Sims. Clinic will call patient with appointment information.
== END 2021-10-02 08:43 | disposition home or self-care (01) ==
PROVIDERS: Emergency Provider Emergency Medicine; PCP Family Medicine
DX: O03.4 Incomplete spontaneous abortion without complication (principal); F17.210 Nicotine dependence, cigarettes, uncomplicated
CPT/HCPCS: 76830; 76856; 80053; 84702; 85025; 96374; 96375; 99284; E0352; J2270; J2405

== ENCOUNTER 2021-10-07 12:00 | Outpatient (CLI) | payer BC, MEDICAID, SELFPAY ==
[2021-10-07] VITALS (7 sets, daily range): BP systolic 122–133; BP diastolic 76–84; PULSE 75–82; RESP 17–18; TEMP 36.3; BMI 46.3
[2021-10-07] MEDS: miSOPROStol 200 mcg Tablet 800 MCG PO (13:02)
[2021-10-07 13:10] LABS: Basophils % 0.5 %; Eosinophils # 0.3 10^3/uL (0.0-0.8); Eosinophils % 3.3 %; Hematocrit 35.8 % (37.0-47.0); Hemoglobin 11.6 g/dL (11.5-15.3); Lymphocytes # 1.9 10^3/uL (0.8-4.8); Mean Corpuscular HGB Conc 32.4 g/dL (30.0-36.0); Mean Corpuscular Hemoglobin 28.3 pg (28.0-34.0); Mean Corpuscular Volume 87.3 fl (81-99); Mean Platelet Volume 8.6 fL (7.4-10.4); Monocytes # 0.3 10^3/uL (0.2-0.9); Monocytes % 4.1 %; Neutrophils # 4.99 10^3/uL (1.8-7.7); Neutrophils % 66.6 %; Nucleated Red Blood Cells % 0 %; Platelet Count 337 10^3/cmm (130-400); Red Cell Distribution Width 13.3 % (12.1-15.1); White Blood Count 7.5 10^3/uL (4.0-10.0)
[2021-10-07] MEDS: ketorolac 30 mg/mL INJ IVP (14:02)
--- NOTE | 2021-10-07 16:32 | USR_ITS ---
PROCEDURE INFORMATION: Exam: US Pelvis, Transvaginal Exam date and time: 10/07/2021 5:33 PM Age: 21 years old Clinical indication: Menstruation abnormalities; Excessive menstruation; Additional info: Possible retained products of conception, bleeding TECHNIQUE: Imaging protocol: Real-time transvaginal pelvic ultrasound with image documentation. Transvaginal imaging was used for better evaluation of the endometrium, adnexa, and/or cervix. COMPARISON: US pelvic with transvaginal 10/02/2021 7:27 AM FINDINGS: Uterus: Uterus measures 10.3 x 6.1 x 6.8 cm. Endometrial stripe measures 1.1 cm in thickness. No focal hyperemia or debris noted within the endometrial canal. Right ovary/adnexa: Right ovary not seen on current study. Left ovary/adnexa: Left ovary not seen on current study. Intraperitoneal space: No free fluid. US/US transvaginal [id number] IMPRESSION: No acute findings. No evidence of retained products of conception.
--- NOTE | 2021-10-07 17:46 | PM.SDS ---
Short Stay Summary Providers Date of Admit/Discharge: 10/09/21 Attending Provider: Lina Sims MD Primary Care Provider: Lina Sims MD Chief Complaint: miscarriage HPI History of Present Illness Griselda Berg is a 21 year old female G 7 P2 who was admitted from home due to incomplete miscarriage. The pt had confirmed IUP with heartbeat at [facility] with GALINA 04/13/22. She presented to the ER on 09/25 for vaginal bleeding that spontaneously resolved, good FHT at that time. She presented again on 10/02 with vaginal bleeding and cramping and was diagnosed with incomplete miscarriage - ultrasound confirmed POC were in the endocervical canal and there was no discernable fetus or sac within the uterus. She followed up in clinic on 10/06 and was noted to still have significant bleeding and cramping present. She was prescribed misoprostil to help her pass the POC, but after multiple phone encounters with the pharmacy it was determined they would not approve the abortificient . Griselda continued to bleed and cramp at home at which point she was admitted to [facility] for expectant management of incomplete miscarriage. Review of Systems Const: Denies: fever(s) Eyes: Denies: change in vision ENMT: Denies: throat pain, mouth pain or ear or mastoid pain Card: Denies: chest pain or palpitations Resp: Denies: dyspnea or productive cough GI: Reports: GI cramping; Denies: vomiting, diarrhea or constipation : Denies: flank pain or difficulty voiding Musc: Denies: limited range of motion Skin/Breast: Denies: rash Neuro: Denies: weakness in extremities Bennett/Lymph: Denies: easy bruising or petechiae All/Imm: Denies: urticaria Home Meds/Allergies Home Medications and Allergies Home Medications Medication Instructions Recorded Confirmed Type No Known Home Medications 10/07/21 10/07/21 History Allergies Allergy/AdvReac Type Severity Reaction Status Date / Time strawberry Allergy ALGY-Difficulty Verified 08/30/21 15:37 Swallowing PFSH Acute PFSH: Medical History (Updated 10/02/21 @ 08:09 by Krista Valdez MD) Anxiety Patient denies medical problems Denies history of: htn,dm,heart,lung,liver,kidney,thyroid,dvt/pe,herpes David-- s/o- w/o herpes hx Surgical History No history of previous surgery Family History Grandmother Thyroid condition maternal Unknown Patient denies medical problems Denies family history of: breast/ovarian/uterine/colon/prostate cancer,HTN,DM,stroke,heart disease,hypercholesterol Social History Smoking and tobacco status: current every day smoker Quit status (tobacco): has quit using tobacco Year quit tobacco: 03/28/2019 Former quit date comment: Stopped smoking due to Alcohol intake: never Vitals/I&O/Wt Last Vital Signs Temp 97.3 F L 10/07/21 17:22 Pulse 77 10/07/21 17:23 Resp 18 10/07/21 12:29 BP 122/76 10/07/21 17:23 O2 Del Method 10/07/21 14:11 Weight last 48 hrs Weight 134.263 kg Physical Exam Const: COMMON NORMALS: no acute distress, patient oriented x3 and alert HENMT: COMMON NORMALS: normocephalic and Normal external nose present HEAD & SCALP: normocephalic NOSE: Normal external nose present Eye: COMMON NORMALS: Equal, round and reactive pupils present and EOMs intact bilaterally PUPIL: Yes Equal, round and reactive pupils present Chest: COMMONS NORMALS: normal inspection of the chest Resp: COMMON NORMALS: normal respiratory effort Cardio: COMMON NORMALS: regular rate and regular rhythm RATE: regular rate RHYTHM: regular rhythm GI: COMMON NORMALS: Normal to inspection, nondistended, normoactive bowel sounds present, Soft to palpation and non-tender PALPATION: Yes Soft to palpation : COMMON NORMALS: Yes no CVA tenderness BLADDER/KIDNEY EXAM: Yes no CVA tenderness Back/Pelvis: COMMON NORMALS: no CVA tenderness Neuro: COMMON NORMALS: patient oriented x3 SENSORIUM/ORIENTATION: Yes alert Psych: COMMON NORMALS: mental status grossly normal and cooperative Hospital Course Admission Diagnoses Incomplete miscarriage Hospital Course The patient was admitted due to complaints of continued bleeding and cramping with retained products of conception. The patient was given a dose of 800 mcg of misoprostol and was monitored during the day. She passed 1 small nickel sized clot and had mild cramping that responded to Toradol. She began having diarrhea likely from the misoprostol but was not having any further bleeding. At that point we obtained an ultrasound that showed a 10 mm endometrium but no obvious retained products of conception. It was determined that she had already passed everything and could be discharged home in good condition. SSS Data Data Completed and Pending: Pending at discharge Category Date Time Status US transvaginal 7 6830 Stat Ultrasound 10/07/21 16:32 Taken Discharge Plan Discharge Patient Disposition: Home Prescriptions: No Action No Known Home Medications Discharge Orders: Discharge Order (Routine); Ordered 10/07/21 Ordered By: Lina Sims Referrals: Lina Sims MD [Primary Care Provider] - 2 weeks Diet: Usual diet Activity: Limit activity as instructed Patient Instructions: Miscarriage (GEN) Activity Restrictions/Additional Instructions: Nothing per vagina for 6 weeks Discharge Date/Time: 10/07/21 18:55 Attestations Medical Necessity Statement*: Excessive bleeding and cramping with incomplete miscarriage. Time Spent in Patient Care*: less than 30 min Quality Metrics Clinical Quality Measures: [ No reported AMI, CVA or VTE this stay] Coding Level of Care Code Acute Radio Sales Account Executive for Chg Fwd Exam Comprehensive
== END 2021-10-07 18:55 | disposition home or self-care (01) ==
LOC: OPOB 12:18 → OBGYN 12:19
PROVIDERS: PCP Family Medicine; Visit Provider Family Medicine
DX: O07.4 Failed attempted termination of pregnancy without complication (principal); Z3A.00 Weeks of gestation of pregnancy not specified
CPT/HCPCS: 36415; 76830; 85025; J1885

== ENCOUNTER 2022-03-18 14:00 | Outpatient (CLI) | payer BC, MEDICAID, SELFPAY ==
--- NOTE | 2022-03-18 | US_ITS ---
WS: [id number] EARLY OBSTETRICAL ULTRASOUND (<14 WEEKS). HISTORY: HX OF MISCARRIAGE COMPARISON: 09/24/2021 Single intrauterine gestational sac is identified. Cardiac activity at 160 BPM. [place]-rump length nola sures 1.7 cm which corresponds to a gestation of 8 weeks 1 day. Normal-appearing yolk sac and amnion demonstrated. Small subchorionic hemorrhage. Small subchorionic hemorrhage measures 8 x 9 x 7 mm. No free fluid. Corpus luteal cyst RIGHT ovary measures 3.3 x 3.1 x 2.8 cm. Cervix is closed. US/US OB <= 14 weeks fetus 98171 IMPRESSION: 1. Single intrauterine gestation of 8 weeks 1 day. 2. Very small subchorionic hemorrhage. 3. Normal cardiac activity.
== END 2022-03-18 14:01 | disposition home or self-care (01) ==
LOC: RAD 14:02
PROVIDERS: PCP Family Medicine; Visit Provider Family Medicine
DX: O09.299 Supervision of pregnancy with other poor reproductive or obstetric history, unspecified trimester (principal); Z3A.08 8 weeks gestation of pregnancy
CPT/HCPCS: 76801

== ENCOUNTER → 2022-03-25 09:03 | Outpatient (BNVA) | payer BC, MEDICAID, SELFPAY | PROVIDERS: PCP Family Medicine; Visit Provider Nurse Practitioner Women's Health | DX: O09.90 Supervision of high risk pregnancy, unspecified, unspecified trimester (principal); Z3A.00 Weeks of gestation of pregnancy not specified | CPT/HCPCS: 81000; 81025; 82950; 83036 ==

== ENCOUNTER → 2022-04-10 09:00 | Outpatient (BNVA) | payer BC, MEDICAID, SELFPAY | PROVIDERS: PCP Family Medicine; Visit Provider Obstetrics & Gynecology | DX: O09.899 Supervision of other high risk pregnancies, unspecified trimester (principal); Z3A.00 Weeks of gestation of pregnancy not specified | CPT/HCPCS: 80307; 84443; 85027; 86592; 86803; 86850; 86900; 87086; 87340; 87491; 87591; 87661; 87806; 88175 ==

== ENCOUNTER → 2022-05-15 12:00 | Outpatient (BNVA) | payer BC, MEDICAID, SELFPAY | PROVIDERS: PCP Family Medicine; Visit Provider Obstetrics & Gynecology | DX: O09.899 Supervision of other high risk pregnancies, unspecified trimester (principal); Z3A.00 Weeks of gestation of pregnancy not specified | CPT/HCPCS: 81511 ==

== ENCOUNTER → 2022-06-18 13:00 | Outpatient (BNVA) | payer BC, MEDICAID, SELFPAY | PROVIDERS: PCP Family Medicine; Visit Provider Obstetrics & Gynecology | DX: O09.899 Supervision of other high risk pregnancies, unspecified trimester (principal); Z3A.00 Weeks of gestation of pregnancy not specified | CPT/HCPCS: 81000 ==

== ENCOUNTER → 2022-07-08 14:27 | Outpatient (BNVA) | payer BC, MEDICAID, SELFPAY | PROVIDERS: PCP Family Medicine; Visit Provider Obstetrics & Gynecology | DX: O09.899 Supervision of other high risk pregnancies, unspecified trimester (principal); Z3A.00 Weeks of gestation of pregnancy not specified | CPT/HCPCS: 81000 ==

== ENCOUNTER → 2022-08-05 14:20 | Outpatient (BNVA) | payer BC, MEDICAID, SELFPAY | PROVIDERS: PCP Family Medicine; Visit Provider Obstetrics & Gynecology | DX: O09.90 Supervision of high risk pregnancy, unspecified, unspecified trimester (principal) | CPT/HCPCS: 82950; 85025 ==

== ENCOUNTER → 2022-08-20 13:59 | Outpatient (BNVA) | payer BC, MEDICAID, SELFPAY | PROVIDERS: PCP Family Medicine; Visit Provider Obstetrics & Gynecology | DX: O09.899 Supervision of other high risk pregnancies, unspecified trimester (principal); Z3A.30 30 weeks gestation of pregnancy | CPT/HCPCS: 81000 ==

== ENCOUNTER → 2022-09-03 10:30 | Outpatient (BNVA) | payer BC, MEDICAID, SELFPAY | PROVIDERS: PCP Family Medicine; Visit Provider Obstetrics & Gynecology | DX: O09.899 Supervision of other high risk pregnancies, unspecified trimester (principal); Z3A.32 32 weeks gestation of pregnancy | CPT/HCPCS: 81000 ==

== ENCOUNTER → 2022-09-29 17:01 | Outpatient (BNVA) | payer BC, MEDICAID, SELFPAY | PROVIDERS: PCP Family Medicine; Visit Provider Obstetrics & Gynecology | DX: Z34.90 Encounter for supervision of normal pregnancy, unspecified, unspecified trimester (principal) | CPT/HCPCS: 81000; 87081 ==

== ENCOUNTER 2022-10-07 14:42 | Outpatient (CLI) | payer BC, MEDICAID, SELFPAY ==
[2022-10-07] VITALS (10 sets, daily range): BP systolic 127–195; BP diastolic 76–103; PULSE 74–91; RESP 17; BMI 51.5
[2022-10-07 16:24] LABS: Add Urine Microscopic? NO; Charge for UA Resulting for Rev
[2022-10-07 16:34] LABS: Basophils % 0.2 %; Eosinophils # 0.1 10^3/uL (0.0-0.8); Hematocrit 33.2 % (37.0-47.0); Hemoglobin 11.1 g/dL (11.5-15.3); Lymphocytes # 1.4 10^3/uL (0.8-4.8); Lymphocytes % 13.2 %; Mean Corpuscular HGB Conc 33.4 g/dL (30.0-36.0); Mean Corpuscular Volume 83.6 fl (81-99); Mean Platelet Volume 8.7 fL (7.4-10.4); Monocytes # 0.6 10^3/uL (0.2-0.9); Monocytes % 5.6 %; Neutrophils # 8.25 10^3/uL (1.8-7.7); Neutrophils % 79.5 %; Nucleated Red Blood Cells % 0 %; Platelet Count 264 10^3/cmm (130-400); Red Blood Count 3.97 10^6/uL (4.1-5.3); Red Cell Distribution Width 14.1 % (12.1-15.1); White Blood Count 10.4 10^3/uL (4.0-10.0)
[2022-10-07 16:41] LABS: Bilirubin Urine Neg (Negative); Blood Urine Neg (Negative); Glucose Urine UA Norm (Normal); Ketones Urine Negative (Negative); Leukocyte Esterase Urine Negative (Negative); Nitrate Urine Negative (Negative); Protein Urine Neg (Negative); Specific Gravity, Urine 1.025 (1.005-1.030); Urine Appearance Clear (CLEAR); Urine Color Yellow (Yellow); Urobilinogen Urine Norm (Negative); pH Urine 5 (5-7)
[2022-10-07 16:52] LABS: Alanine Aminotransferase 11 U/L (0-33); Albumin Level 3.4 g/dL (3.5-5.2); Alkaline Phosphatase 70 U/L (35-105); Anion Gap 14.8 (5-19); Aspartate Amino Transferase 17 U/L (0-32); Blood Urea Nitrogen 5 mg/dL (6-20); Calcium 8.4 mg/dL (8.5-10.5); Carbon Dioxide 21 mmol/L (22-29); Chloride 105 mmol/L (98-107); Globulin 2.7 g/dL (1.3-4.6); Glomerular Filtration Rate 278.2 mL/min (90-130); Glucose 83 mg/dL (65-115); Osmolality Calculated 280 mOsm/kg (285-295); Potassium 3.8 mmol/L (3.5-5.1); Sodium 137 mmol/L (136-145); Total Bilirubin 0.2 mg/dL (0.15-1.2); Total Protein 6.1 g/dL (6.6-8.7); Uric Acid 3.7 mg/dL (2.4-5.7)
[2022-10-07 17:30] LABS: Urine Creatinine 197 mg/dL (28-217)
[2022-10-07 17:31] LABS: UPRO/UCREAT Ratio 0.11 mg/mg CR; Urine Protein Random 21 mg/dL
== END 2022-10-07 17:15 | disposition home or self-care (01) ==
LOC: OPOB 14:51 → OBGYN 14:52
PROVIDERS: PCP Family Medicine; Visit Provider Obstetrics & Gynecology
DX: O16.9 Unspecified maternal hypertension, unspecified trimester (principal); Z3A.00 Weeks of gestation of pregnancy not specified
CPT/HCPCS: 36415; 59025; 80053; 81000; 81003; 82570; 84156; 84550; 85025; 99211

== ENCOUNTER 2022-10-09 15:09 | Outpatient (CLI) | payer BC, MEDICAID, SELFPAY ==
[2022-10-09 15:16] VITALS: BP 139/96; PULSE 103
[2022-10-09 15:23] VITALS: BMI 51.5
[2022-10-09 15:39] VITALS: BP 130/79; PULSE 85
[2022-10-09 15:58] VITALS: BP 132/75; PULSE 80
[2022-10-09 16:18] VITALS: BP 142/68; PULSE 75
== END 2022-10-09 16:40 | disposition home or self-care (01) ==
LOC: OPOB 15:10 → OBGYN 15:12
PROVIDERS: PCP Family Medicine; Visit Provider Obstetrics & Gynecology
DX: O24.419 Gestational diabetes mellitus in pregnancy, unspecified control (principal); Z3A.00 Weeks of gestation of pregnancy not specified
CPT/HCPCS: 59025

== ENCOUNTER 2022-10-10 19:33 | Outpatient (CLI) | payer BC, MEDICAID, SELFPAY ==
[2022-10-10] VITALS (31 sets, daily range): BP systolic 119–149; BP diastolic 71–100; PULSE 75–92; RESP 16; TEMP 35.9; O2SAT 93–99; BMI 52.1
[2022-10-10] MEDS: acetaminophen 500 mg Tablet 1000 MG PO (22:06)
== END 2022-10-10 22:52 | disposition home or self-care (01) ==
LOC: OPOB 19:34 → OBGYN 19:35
PROVIDERS: PCP Family Medicine; Visit Provider Obstetrics & Gynecology
DX: O36.8190 Decreased fetal movements, unspecified trimester, not applicable or unspecified (principal); Z3A.00 Weeks of gestation of pregnancy not specified
CPT/HCPCS: 59025; 99211

== ENCOUNTER → 2022-10-13 10:13 | Outpatient (BNVA) | payer BC, MEDICAID, SELFPAY | PROVIDERS: PCP Family Medicine; Visit Provider Obstetrics & Gynecology | DX: O09.899 Supervision of other high risk pregnancies, unspecified trimester (principal); Z3A.38 38 weeks gestation of pregnancy | CPT/HCPCS: 81000 ==

== ENCOUNTER 2022-10-15 11:18 | Outpatient (CLI) | payer BC, MEDICAID, SELFPAY ==
[2022-10-15 11:20] VITALS: BMI 51.8
[2022-10-15 11:44] VITALS: BP 137/69; PULSE 82
[2022-10-15 11:54] VITALS: BP 122/71; PULSE 83
[2022-10-15 12:04] VITALS: BP 120/74; PULSE 82
[2022-10-15 12:15] VITALS: BP 110/88; PULSE 76
[2022-10-15 12:20] VITALS: BP 110/88; PULSE 76
== END 2022-10-15 12:20 | disposition home or self-care (01) ==
LOC: OPOB 11:19 → OBGYN 11:39
PROVIDERS: PCP Family Medicine; Visit Provider Obstetrics & Gynecology
DX: Z36.9 Encounter for antenatal screening, unspecified (principal)
CPT/HCPCS: 59025; 99211

== ENCOUNTER 2022-10-16 05:13 | Inpatient (IN) | payer BC, MEDICAID, SELFPAY ==
[2022-10-16] VITALS (24 sets, daily range): BP systolic 98–140; BP diastolic 47–96; PULSE 62–90; RESP 15–17; TEMP 36.2–36.9; O2SAT 95–100; BMI 51.8
[2022-10-16 06:23] LABS: Basophils % 0.3 %; Eosinophils # 0.1 10^3/uL (0.0-0.8); Hematocrit 34.9 % (36-47); Lymphocytes # 1.6 10^3/uL (0.8-4.8); Mean Corpuscular HGB Conc 31.8 g/dL (30-55); Mean Corpuscular Hemoglobin 27.2 pg (27-33); Mean Corpuscular Volume 85.5 fl (85-98); Mean Platelet Volume 8.9 fL (7.4-10.4); Monocytes # 0.6 10^3/uL (0.2-0.9); Monocytes % 6.7 %; Neutrophils # 6.93 10^3/uL (1.8-7.7); Neutrophils % 74.6 %; Nucleated Red Blood Cells % 0 %; Platelet Count 258 10^3/cmm (157-399); Red Blood Count 4.08 10^6/uL (3.85-5.65); White Blood Count 9.29 10^3/uL (3.29-11.43)
[2022-10-16] MEDS: lactated ringers 1,000 ML 999 ML IV (09:15)
[2022-10-16] MEDS: famotidine 20 mg/2 mL INJ IVP (09:31)
[2022-10-16] MEDS: citric acid-sodium citrate 30 mL UDC PO (09:31)
[2022-10-16] MEDS: metoclopramide 5 mg/mL SDV 2 mL 10 MG IV (09:31)
--- NOTE | 2022-10-16 09:38 | ANES.PREANE2 ---
Pre-Anesthetic Assessment Height/Weight: Height 1.7 m Weight 150.139 kg Pulse Resp BP O2 Del Method 74 16 135/82 Room Air 10/16/22 09:15 10/16/22 06:11 10/16/22 09:15 10/16/22 06:07 Preop Diagnosis: previous section Operation Date: 10/16/22 07:00 Proposed Procedures p Repeat section 65177, bilateral tubal ligation 00098, O34.219,Z30.2(Bilateral) - Henrry Fajardo MD Familial anesthetic complications: none Was Beta Marian taken within 24 hours: N/A Was Clonidine taken within 24 hours: N/A Last Intake: 22:00 Social Tobacco 1/2 pack(s) per day 5+ pack years Exam alert, oriented x 3, clear to auscultation bilaterally and regular rate & rhythm Airway Submandibular: within normal limits Cervical ROM: within normal limits Mallampati: Class II Dentition: full Pulmonary None reported CV/HEM Hypertension (with ) None reported Hepatic None reported GI Gastroesophageal Reflux Disease Metabolic Morbid Obesity [facility] Lower Back Pain Neuropsych Seizure (after covid vaccine) Anesthetic Plan ASA status: 2 Anesthesia: Regional (specify below) (sab) Risk of > 500 ml blood loss (7ml/kg in children): Yes, adequate IV access and fluids planned Medications/Allergies Home Medications Medication Instructions Recorded Confirmed Last Taken Type PNV 153-FA 400 mcg-om3 35 mg-dha 1 tab PO DAILY 03/25/22 10/15/22 10/08/22 09:00 History 25 mg-epa 5 mg-fish oil chew tablet ( Gummies) famotidine 40 mg tablet (Pepcid) 40 mg PO DAILY #30 tabs 08/20/22 10/15/22 10/05/22 Rx Allergies Allergy/AdvReac Type Severity Reaction Status Date / Time strawberry Allergy ALGY-Difficulty Verified 10/13/22 10:17 Swallowing [facility] Anesthesia Medical History Anxiety Patient denies medical problems Denies history of: htn,dm,heart,lung,liver,kidney,thyroid,dvt/pe,herpes David-- s/o- w/o herpes hx Surgical History History of surgery Wound debridement in left elbow; 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 Procedure done in [place] No history of previous surgery Family History Grandmother Thyroid condition maternal Unknown Patient denies medical problems Denies family history of: breast/ovarian/uterine/colon/prostate cancer,HTN,DM,stroke,heart disease,hypercholesterol Social History Substance/Drug Use: never Female Reproductive History : 6 Data Anesthesia 10/16/22 05:58 Short CBC 10/16/22 Range/Units 05:58 WBC 9.29 (3.29-11.43) 10^3/uL Hgb 11.10 L (11.27-16.99) g/dL Hct 34.9 L (36-47) % MCV 85.5 (85-98) fl Plt Count 258 (157-399) 10^3/cmm Neut % (Auto) 74.6 % Neut # (Auto) 6.93 (1.8-7.7) 10^3/uL Cardiac Studies: No Data to Display
[2022-10-16] MEDS: ceFAZolin 2,000 MG in sodium chloride 0.9% (plus) 50 ML 100 MG IV (09:59)
--- NOTE | 2022-10-16 11:10 | P.OP_ITS ---
Operative Report Date of procedure: October 16, 2022 Pre-op diagnosis: 39 ? weeks gestation Previous x one For repeat Desired permanent sterilization Post-op diagnosis: same Post-op findings: Vigorous male Normal placenta and cord Normal uterus, tubes, and ovaries Procedure done: Repeat low-transverse Bilateral partial salpingectomy Specimens removed/disposition: placenta, discarded fallopian tube segments, sent to pathology Surgeon: Henrry Fajardo MD Anesthesia: Other Estimated blood loss (mL): 500 Complications: none Condition: stable Disposition: PACU Brief History: Patient with previous , scheduled for repeat . In addition, she wanted permanent sterilization. She understands irreversibility of the procedure and refused reversible types of control. Medicaid consent for bilateral tubal ligation signed August 08, 2022. Procedure: Informed consent signed. Patient was taken to the operating room, placed supine in the left lateral tilt position. Spinal anesthesia and a Cifuentes catheter were already placed. The abdomen was prepped and draped in the usual sterile fashion. A Pfannenstiel incision was made over an old scar and carried down through skin and subcutaneous tissue and fascia. The fascial incision was extended laterally with Larios scissors. The fascia was from the underlying rectus muscles. The rectus muscles were split in the midline. The peritoneum was entered bluntly avoiding underlying organs. A bladder flap was created. A low transverse uterine incision was made and extended laterally bluntly avoiding the uterine vessels. Clear amniotic fluid was seen. The baby was delivered in cephalic presentation atraumatically. The baby was suctioned. The cord was clamped and cut and the baby was handed to an awaiting drosophere operator. Cord blood was obtained. The placenta was manually removed intact. The uterus was exteriorized. The uterine cavity was bluntly curetted with wet laps. The uterine incision was then closed with a continuous interlocking stitich of O chromic. Adequate hemostasis was seen. No bleeding was seen. Attention was then turned to the bilateral tubal ligation. The left fallopian tube was identified to its fimbrial end. The mid-tube region was grasped with a [place] and an opening was made in the mesosalpinx. The fallopian tube was then ligated proximally and distally with a free tie of 2-O chromic. A 3 cm segment of fallopian tube was excised using Metzenbaum scissors. The proximal and distal ends were cauterized with the bovie. The right fallopian tube was similarly identified to its fimbrial end. An opening was made in the mesaosalpinx and the right fallopian tube was ligated proximally and distally with a tie of 2-O chromic. A 3 cm segment of fallopian tube was excised using Metzenbaum scissors. The proximal and distal ends were cauterized with the bovie. No bleeding was seen. The uterine incision was again inspected and found to have good hemostasis. The uterus was returned into the abdominal cavity. Inspection of the tubal ligation sites and the uterine incision showed adequate hemostasis. The fascia was then closed with a continuous stitch of O-Vicryl. Additional interrupted stitches of O-Vicryl were used for fascial closure. The subcutaneous tissue was irrigated and inspected for hemostasis. The skin was then reapproximated using Insorb katyh. Postoperative condition stable Disposition to recovery room Estimated blood loss 500 cc, no replacement Sponge, needle, and instrument counts were correct x two There were no complications
--- NOTE | 2022-10-16 14:15 | P.HP_ITS ---
Providers/Chief Complaint Admitting Physician: Henrry Fajardo MD Primary SUPERINTENDENT QUARRY: Henrry Fajardo MD Primary Care Provider: Lina Sims MD Chief Complaint: C Section HPI SUPERINTENDENT QUARRY History of Present Illness 22 y.o. A3 LMP January 21, 2023 EDC October 28, 2022, c/w 8-wk sono At 38 w 2 d Admitted for repeat and bilateral tubal ligation Patient with intermittently elevated BPs, headache, and peripheral swelling Hence, it was decided to deliver patient prior to 39 weeks No c/o today + active movements POBHx: 1. , female, 5 lbs 15 oz; OZHC 2. c-s, female, 7 lbs 3 oz, GDM, gestational hypertension SHx: + smoking Present Details : 6 Para: 2 Medications/Allergies Home Medications Medication Instructions Recorded Confirmed Last Taken Type PNV 153-FA 400 mcg-om3 35 mg-dha 1 tab PO DAILY 03/25/22 10/15/22 10/08/22 09:00 History 25 mg-epa 5 mg-fish oil chew tablet ( Gummies) famotidine 40 mg tablet (Pepcid) 40 mg PO DAILY #30 tabs 08/20/22 10/15/22 10/05/22 Rx Allergies Allergy/AdvReac Type Severity Reaction Status Date / Time strawberry Allergy ALGY-Difficulty Verified 10/13/22 10:17 Swallowing PFSH SUPERINTENDENT QUARRY PFSH: Medical History Anxiety Patient denies medical problems Denies history of: htn,dm,heart,lung,liver,kidney,thyroid,dvt/pe,herpes David-- s/o- w/o herpes hx Surgical History History of surgery Wound debridement in left elbow; 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 Procedure done in [place] No history of previous surgery Family History Grandmother Thyroid condition maternal Unknown Patient denies medical problems Denies family history of: breast/ovarian/uterine/colon/prostate cancer,HTN,DM,stroke,heart disease,hypercholesterol Social History Substance/Drug Use: never Other Female Reproductive History: Hx Age of Menarche: 13 History History History 6 Term 2 0 Miscarriages/Ectopic 3 Living Children 2 Care GALINA Calculator Estimated Delivery Date Method Current WG Current Estimate 10/28/22 LMP (Certain) 38w 2d Vitals/I&O/Wt Last Vital Signs Pulse 74 10/16/22 09:15 Resp 16 10/16/22 06:11 BP 135/82 10/16/22 09:15 O2 Del Method Room Air 10/16/22 06:07 10/15/22 10/16/22 10/16/22 22:59 06:59 14:59 Intake Total 50 / 50 Balance 50 / 50 Weight last 48 hrs Weight 331 lb Physical Exam Narrative: Weight 333 lbs; 5?8? BP 140 / 96 FH 38 cm, large pannus FHTs normal External monitor: heart tracing good variability, + accelerations Urinary Catheter Management: Cifuentes: Cath Placed During This Visit: yes Urinary Catheter Date of Insertion: 10/16/22 Urinary Catheter Time of Insertion: 09:55 Data 10/16/22 05:58 A&P Assessment and plan (1) Supervision of other high-risk : (2) History of delivery: patient wants repeat c-s and bilateral tubal ligation states she never wants to be again refuses reversible control understands irreversibility of procedure states also has 2 foster children at home plan [facility] [place], BTL today (3) Pre-eclampsia complicating hypertension: Attestations Medical Necessity Statement*: patient at 38 w 2 d with preeclampsia without severe features, previous c- section, desires permanent sterilization admitted for RCS, btl Coding Level of Care Code Acute Code for Chg Fwd Diagnoses Supervision of other high-risk O09.899 History of delivery Z98.891 Pre-eclampsia complicating hypertension O11.9 Time Spent (min) 60
--- NOTE | 2022-10-16 14:58 | ANE.PACU2 ---
Inpatient post-anesthesia follow up: Airway intact: Yes Vital signs: Temperature Pulse Rate 74 Respiratory Rate 16 Blood Pressure 135/82 Pulse Oximetry Oxygen Delivery Me thod Room Air Oxygen Flow Rate Fraction of Inspir ed Oxygen Hydration adequate: Yes Nausea and vomiting: No Pain level: 2 Mental status: Baseline
[2022-10-16] MEDS: docusate sodium 100 mg Capsule PO (18:34)
[2022-10-16] MEDS: ketorolac 30 mg/mL INJ IVP (18:34)
[2022-10-16] MEDS: dextrose 5%-lactated ringers 1,000 ML 125 ML IV (19:55)
[2022-10-16] MEDS: diphenhydrAMINE 50 mg/mL SDV 1mL 25 MG IVP (20:00)
[2022-10-17 00:45] LABS: Mean Corpuscular HGB Conc 31.3 g/dL (30-55); Mean Corpuscular Volume 86.4 fl (85-98); Platelet Count 228 10^3/cmm (157-399); Red Blood Count 3.59 10^6/uL (3.85-5.65); Red Cell Distribution Width 14.2 % (12.1-15.1); White Blood Count 9.86 10^3/uL (3.29-11.43)
[2022-10-17] MEDS: ketorolac 30 mg/mL INJ IVP (00:53)
[2022-10-17 05:50] VITALS: BP 130/84; PULSE 78; RESP 16; TEMP 36.6; O2SAT 98
[2022-10-17] MEDS: ibuprofen 800 mg tablet PO ×3 (09:35→21:09)
[2022-10-17] MEDS: docusate sodium 100 mg Capsule PO ×2 (09:36→18:39)
[2022-10-17] MEDS: prenatal vitamin Capsule 1 CAP PO (09:36)
--- NOTE | 2022-10-17 10:12 | PM.PN ---
Subjective Subjective: 22-year-old female G6, P3 s/p repeat section, patient is doing well without complaints. Tolerating regular diet, voiding and ambulating without assistance. Patient is passing flatus but has not passed a stool yet. Patient denies headaches blurred vision shortness of breath or chest pain. Postop expectations reviewed patient encouraged to ambulate, discussed risk of pneumonia and VTE. Vitals/I&O/Wt Last Vital Signs Temp 97.9 F 10/17/22 05:50 Pulse 78 10/17/22 05:50 Resp 16 10/17/22 05:50 BP 130/84 10/17/22 05:50 Pulse Ox 98 10/17/22 05:50 O2 Del Method Room Air 10/17/22 05:50 10/16/22 10/17/22 10/17/22 22:59 06:59 14:59 Output Total 400 / 1750 175 / 1925 Balance -400 / 500 -175 / 325 Weight last 48 hrs Weight 150.139 kg Physical Exam Back/Pelvis: OTHER: Abdomen?soft, fundus below umbilicus Surgical bandage removed?incision clean, intact Steri-Strips intact. Extremity: NARRATIVE EXTREMITY EXAM: Generalized edema nonpitting Reflexes +2 bilaterally Negative Homans' sign Urinary Catheter Management: Cifuentes: Cath Placed During This Visit: yes, but has since been removed by the nurse Reason for Continuing Indwelling Catheter: Decision to DC Catheter Urinary Catheter Date of Insertion: 10/16/22 Urinary Catheter Time of Insertion: 09:55 Date Urinary Catheter Removed: 10/17/22 Time Urinary Catheter Discontinued: 03:25 Data 10/16/22 23:51 A&P Assessment and plan (1) Supervision of other high-risk : (2) History of delivery: A. 1. S/p repeat section POD #1 2. Asymptomatic anemia P. Continue postoperative care (3) Morbid obesity: (4) History of gestational diabetes mellitus (GDM): (5) History of gestational hypertension: (6) Pre-eclampsia complicating hypertension: (7) Tobacco abuse: Attestations Medical Necessity Statement*: Postop day #1 s/p repeat section Coding Level of Care Code Acute Code for Chg Fwd Diagnoses Supervision of other high-risk O09.899 History of delivery Z98.891 Morbid obesity E66.01 History of gestational diabetes mellitus (GDM) Z86.32 History of gestational hypertension Z87.59 Pre-eclampsia complicating hypertension O11.9 Tobacco abuse Z72.0
[2022-10-17 10:20] VITALS: BP 136/90; PULSE 85; TEMP 36.6; O2SAT 99
[2022-10-17 16:20] VITALS: BP 124/86; PULSE 86; TEMP 36.7; O2SAT 99
[2022-10-17] MEDS: HYDROcodone-acetaminophen 5-325 mg Tablet PO (18:39)
[2022-10-17] MEDS: simethicone 80 mg Chew PO (18:42)
[2022-10-17 22:40] VITALS: BP 125/84; PULSE 86; RESP 16; TEMP 36.6; O2SAT 99
[2022-10-18 04:19] VITALS: BP 114/68; PULSE 84; RESP 16; TEMP 36.7; O2SAT 100
--- NOTE | 2022-10-18 08:01 | P.DS_ITS ---
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 Date of Admission: 10/16/22 05:13 Date of Discharge: 10/18/22 Attending Provider at Admission: Henrry Fajardo MD Attending Provider at Discharge: Henrry Fajardo MD Primary Care Provider: Lina Sims MD Diagnoses at Discharge Discharge Diagnosis (1) Supervision of other high-risk : Status: Acute (2) History of delivery: Status: Acute (3) Morbid obesity: Status: Acute (4) History of gestational diabetes mellitus (GDM): Status: Acute (5) History of gestational hypertension: Status: Acute (6) Pre-eclampsia complicating hypertension: Status: Acute (7) Tobacco abuse: Status: Acute Reason for Visit Reason for Visit: C Section Hospital Course Hospital Course 22-year-old female G6, P3 admitted for repeat section and elective sterilization. Patient's postop course has been uneventful. She is progressing well with no complaints. She is ambulating, tolerating a regular diet, voiding and has had multiple stools. Patient is breast-feeding as well as using the breast pump. Importance of and postoperative follow-up with an office visit has been reviewed in great detail. Patient verbalizes understanding. Discharge expectations of increased fluids, fruits and vegetables as well as continuation of her vitamins reviewed. Vital signs stable afebrile Abdomen?soft, fundus firm below the umbilicus. Lochia light Extremities?mild edema nonpitting. Negative Homans' sign Information Peripartum Data: Delivery Method: Physical Exam Urinary Catheter Management: Cifuentes: Cath Placed During This Visit: yes, but has since been removed by the nurse Reason for Continuing Indwelling Catheter: Decision to DC Catheter Urinary Catheter Date of Insertion: 10/16/22 Urinary Catheter Time of Insertion: 09:55 Date Urinary Catheter Removed: 10/17/22 Time Urinary Catheter Discontinued: 03:25 History History History 6 Term 3 0 Miscarriages/Ectopic 3 Living Children 3 Discharge Data Studies Completed and Pending Laboratory Results WBC 9.86 10^3/uL (3.29-11.43) 10/16/22 23:51 RBC 3.59 10^6/uL (3.85-5.65) L 10/16/22 23:51 Hgb 9.70 g/dL (11.27-16.99) L 10/16/22 23:51 Hct 31.0 % (36-47) L 10/16/22 23:51 MCV 86.4 fl (85-98) 10/16/22 23:51 MCH 27.0 pg (27-33) 10/16/22 23:51 MCHC 31.3 g/dL (30-55) 10/16/22 23:51 RDW 14.2 % (12.1-15.1) 10/16/22 23:51 Plt Count 228 10^3/cmm (157-399) 10/16/22 23:51 MPV 9.0 fL (7.4-10.4) 10/16/22 23:51 Neut % (Auto) 74.6 % 10/16/22 05:58 Lymph % (Auto) 17.0 % 10/16/22 05:58 Union % (Auto) 6.7 % 10/16/22 05:58 Eos % (Auto) 1.0 % 10/16/22 05:58 Baso % (Auto) 0.3 % 10/16/22 05:58 Neut # (Auto) 6.93 10^3/uL (1.8-7.7) 10/16/22 05:58 Lymph # (Auto) 1.6 10^3/uL (0.8-4.8) 10/16/22 05:58 Union # (Auto) 0.6 10^3/uL (0.2-0.9) 10/16/22 05:58 Eos # (Auto) 0.1 10^3/uL (0.0-0.8) 10/16/22 05:58 Baso # (Auto) 0.0 10^3/uL (0.0-0.1) 10/16/22 05:58 Nucleated RBC % (auto) 0 % 10/16/22 05:58 Nucleated RBCs # 0.0 /100WBC 10/16/22 05:58 Procedures Performed Repeat section with bilateral tubal sterilization Vitals Last Vital Signs Temp 98.1 F 10/18/22 04:19 Pulse 84 10/18/22 04:19 Resp 16 10/18/22 04:19 BP 114/68 10/18/22 04:19 Pulse Ox 100 10/18/22 04:19 O2 Del Method Room Air 10/18/22 04:19 Discharge Plan Discharge Patient Disposition: Home Condition: Stable Prescriptions: New hydrocodone-acetaminophen 5-325 mg Tablet 1 - 2 tab PO Q4H PRN (Reason: Moderate To Severe Pain) Qty: 7 0RF Rx Instructions: Take as directed Continued famotidine [Pepcid] 40 mg tablet 40 mg PO DAILY Qty: 30 6RF Gummies 400 mcg-35 mg- 25 mg-5 mg tablet,chewable 1 tab PO DAILY Discharge Orders: Discharge Order (Routine); Ordered 10/18/22 Ordered By: Elaine Bentley Patient Instructions: Depression (GEN), Preeclampsia and Eclampsia After Delivery (GEN), Hemorrhage (GEN), OB WHC, OB Discharge Report, OB Food/Drug Interaction Guide, Opioid Safety, OB Home Care, Abnormal Bleeding Assessment: 1. S/p repeat section with elective sterilization Plan of Treatment: 1. Discharge to home 2. 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
[2022-10-18 09:40] VITALS: BP 165/110; PULSE 95; TEMP 37.1; O2SAT 98
[2022-10-18] MEDS: docusate sodium 100 mg Capsule PO (09:45)
[2022-10-18] MEDS: ibuprofen 800 mg tablet PO (09:45)
[2022-10-18] MEDS: prenatal vitamin Capsule 1 CAP PO (09:45)
[2022-10-18] MEDS: ferrous sulfate EC 325 mg Tablet PO (09:45)
[2022-10-18] MEDS: HYDROcodone-acetaminophen 5-325 mg Tablet PO (10:34)
[2022-10-18 11:00] VITALS: BP 165/110; PULSE 95; RESP 16; TEMP 37.1; O2SAT 98
== END 2022-10-18 11:00 | disposition home or self-care (01) | DRG 785 ==
PROVIDERS: Admitting Provider Obstetrics & Gynecology; PCP Family Medicine; Visit Provider Obstetrics & Gynecology
PROC: 10D00Z1 Extraction of Products of Conception, Low, Open Approach (ICD-10-PCS; CPT 59514; principal; 2022-10-16 07:00)
DX: O34.211 Maternal care for low transverse scar from previous cesarean delivery (principal); N85.8 Other specified noninflammatory disorders of uterus; Z3A.38 38 weeks gestation of pregnancy; Z37.0 Single live birth; O13.4 Gestational [pregnancy-induced] hypertension without significant proteinuria, complicating childbirth; O99.334 Smoking (tobacco) complicating childbirth; F17.210 Nicotine dependence, cigarettes, uncomplicated; Z30.2 Encounter for sterilization
CPT/HCPCS: 36415; 51702; 59025; 59409; 85025; 85027; 88302; 96374; 96376; J0690; J1200; J1885; J2274; J2405; J2765; J3490; J7120; J7121

== ENCOUNTER 2023-06-18 21:30 | Emergency (ER) | payer BC, MEDICAID, SELFPAY ==
--- NOTE | 2023-06-18 21:34 | XRR_ITS ---
PROCEDURE INFORMATION: Exam: XR Left Wrist Exam date and time: 06/18/2023 9:42 PM Age: 23 years old Clinical indication: Hand and wrist; Left; Patient HX: Lt hand/wrist pain TECHNIQUE: Imaging protocol: Radiologic exam of the left wrist. Views: 3 or more views. COMPARISON: No relevant prior studies available. FINDINGS: Bones/joints: Normal mineralization and alignment. No evidence of acute fracture or dislocation. No significant degenerative changes. Soft tissues: The soft tissues are within normal limits. XR/XR wrist LT min 3V* [id number] IMPRESSION: No evidence of acute fracture or dislocation.
[2023-06-18 21:48] VITALS: BP 153/98; PULSE 83; RESP 14; TEMP 36.7; O2SAT 98
--- NOTE | 2023-06-18 22:07 | XRR_ITS ---
PROCEDURE INFORMATION: Exam: XR Left Hand Exam date and time: 06/18/2023 10:14 PM Age: 23 years old Clinical indication: Hand and wrist; Left; Patient HX: Lt hand/wrist pain TECHNIQUE: Imaging protocol: Radiologic exam of the left hand. Views: 3 or more views. COMPARISON: CR (UP EX, ) 06/18/2023 9:42 PM FINDINGS: Bones/joints: Normal mineralization and alignment. No evidence of acute fracture or dislocation. No significant degenerative changes. Soft tissues: The soft tissues are within normal limits. XR/XR hand LT min 3V* [id number] IMPRESSION: No evidence of acute fracture or dislocation.
[2023-06-18] MEDS: acetaminophen 500 mg Tablet 1000 MG PO (22:32)
--- NOTE | 2023-06-18 23:41 | ED_ITS ---
Documented by User: [email or web address] Hagen 06/18/23 23:46 HPI - Extremity Problem General: Chief complaint: Extremity Injury, Upper Stated complaint: left wrist pain Time Seen by Provider: 06/18/23 21:55 Source: patient Mode of arrival: ambulatory Limitations: no limitations History of Present Illness: Patient is a 23-year-old female presenting to the emergency department complaining of left hand pain onset tonight. Patient notes she was playing with her child prior to bed, she notes sudden onset of pain to the medial aspect of her left hand. She denies any trauma or significant inciting event. She has no prior injuries or surgeries to that hand. She has no complaints of numbness, weakness, tingling, bruising, deformities, or other symptoms. She has not tried anything for her pain though she notes that compressing the area provides relief. She is right-hand dominant and denies any history of strenuous work with her hands. No pertinent past medical history. MD Complaint: extremity pain (Left hand) Onset (ago): minute(s) Pain Consistency: constant Location: left Quality: aching Relieving factors: other (Compression) Exacerbating factors: range of motion and palpation Associated symptoms: Reports no associated symptoms; Deny chest pain, fever(s) or rash Review of Systems General: Reports: 10 or more systems reviewed and unremarkable except in HPI and below Const: Denies: fever(s), chills or fatigue Eyes: Denies: change in vision ENMT: Denies: throat pain, ear or mastoid pain or nasal discharge Card: Denies: chest pain, palpitations, swelling of feet/ankles or lightheadedness Resp: Denies: dyspnea, productive cough or wheezing GI: Denies: abdominal pain, nausea, vomiting, diarrhea or constipation : Denies: flank pain, difficulty voiding, dysuria or urinary frequency Musc: Reports: extremity pain (Left hand); Denies: neck pain, back pain or joint pain Skin/Breast: Denies: rash Neuro: Denies: headache(s), numbness in extremities or weakness in extremities PFS ED PFSH: Medical History History of gestational hypertension History of gestational diabetes mellitus (GDM) Patient denies medical problems Denies history of: htn,dm,heart,lung,liver,kidney,thyroid,dvt/pe,herpes David-- s/o- w/o herpes hx Anxiety Surgical History History of surgery Wound debridement in left elbow; 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 Procedure done in [place] No history of previous surgery Family History Grandmother Thyroid disease maternal Unknown Patient denies medical problems Denies family history of: breast/ovarian/uterine/colon/prostate cancer,HTN,DM,stroke,heart disease,hypercholesterol Social History Substance/Drug Use: never Physical Exam Const: COMMON NORMALS: no acute distress, patient oriented x3 and no limitations GENERAL APPEARANCE: cooperative, comfortable and well developed ORIENTATION/CONSCIOUSNESS: Yes awake, Yes oriented to person, Yes oriented to place and Yes oriented to time HENMT: COMMON NORMALS: normocephalic, atraumatic and hearing grossly normal b ilaterally HEAD & SCALP: normocephalic and atraumatic Eye: COMMON NORMALS: Equal, round and reactive pupils present, EOMs intact bilaterally and conjunctivae normal CONJUNCTIVA: Yes conjunctivae normal PUPIL: Yes Equal, round and reactive pupils present Neck/C-Spine: COMMON NORMALS: full ROM, supple and no JVD Resp: COMMON NORMALS: normal respiratory effort, No retractions, No use of accessory muscles and clear to auscultation bilaterally AUSCULTATION: clear to auscultation bilaterally Cardio: COMMON NORMALS: no JVD, regular rate, regular rhythm, No clicks present (Cardio), No murmurs present (Cardio) and No rub (Cardio) RATE: regular rate RHYTHM: regular rhythm Extremity: COMMON NORMALS: normal to inspection, full ROM and capillary refill normal NARRATIVE EXTREMITY EXAM: Mild tenderness to palpation about the left medial carpal bones. No overlying edema, ecchymosis, deformity, or other signs of trauma. She is able to move the hand and has good strength. No distal neurovascular complaints. Neuro: COMMON NORMALS: patient oriented x3, moves all extremities, no focal motor deficits and no sensory deficits noted SENSORIUM/ORIENTATION: Yes oriented to person, Yes oriented to place and Yes oriented to time Psych: COMMON NORMALS: mental status grossly normal and Normal thought process present THOUGHT PROCESS: Normal thought process present Skin: COMMON NORMALS: no rashes or lesions noted GENERAL SKIN EXAM: no rashes or lesions noted Course Vital Signs: Vital signs: Vital Signs Temperature 98.0 F 06/18/23 21:48 Pulse Rate 80 06/19/23 00:15 Respiratory Rate 16 06/19/23 00:15 Blood Pressure 153/98 06/18/23 21:48 Pulse Oximetry 97 06/19/23 00:15 Oxygen Delivery Me thod Room Air 06/18/23 21:48 MDM - Extremity (Nontraumatic) Medical Decision Making This patient was seen for left hand pain she reports began just prior to arrival. No trauma or event reported, pain happened spontaneously. Patient's vitals normal and examination revealed some reproducible tenderness to palp ation. There were no signs of trauma or other concerning symptoms. X-ray evaluation of the left wrist and hand did not demonstrate any signs of fracture or other injuries. I did inform the patient that she continues to have pain despite conservative therapy of RICE, she needs to follow-up with primary care for potential further imaging. Patient's hand is wrapped prior to ED discharge due to relief from compression, and I do believe patient's pain potentially due to sprain versus contusion that patient was not aware she suffered. Patient will be discharged home with return precautions given. Encouraged to take Tylenol for pain. Lab Data Radiology Impressions Wrist X-Ray 06/18/23 21:34 IMPRESSION: No evidence of acute fracture or dislocation. Hand X-Ray 06/18/23 22:07 IMPRESSION: No evidence of acute fracture or dislocation. All radiology interpretation(s) finalized by discharge Discharge Plan Discharge Patient Disposition: Home Clinical Impression: Strain of hand, left Qualifiers: Encounter type: initial encounter Qualified Code(s): S66.912A - Strain of unspecified muscle, fascia and tendon at wrist and hand level, left hand, initial encounter Condition: Stable Prescriptions: New Tylenol 325 mg tablet 650 mg PO Q6H PRN (Reason: pain) Qty: 60 0RF No Action Gummies 400 mcg-35 mg- 25 mg-5 mg tablet,chewable 1 tab PO DAILY hydrocodone-acetaminophen 5-325 mg Tablet 1 - 2 tab PO Q4H PRN (Reason: Moderate To Severe Pain) Qty: 7 0RF Rx Instructions: Take as directed Discharge Orders: Discharge ED (Routine); Ordered 06/18/23 Ordered By: Edgar Pedroza Referrals: Lina Sims MD [Primary Care Provider] - Discharge Diet: Usual diet Discharge Activity: Increase activity as tolerated Patient Instructions: Hand Sprain (ED) Activity Restrictions/Additional Instructions: Rest, ice, compression, elevation. Take Tylenol for pain. If you continue to have pain, follow-up with primary care for further evaluation. Return if you develop any new concerning symptoms. Coding Level of Care Code ED Supervisor Cartography for Chg Fwd Documented by User: Hardik Daniels DO 06/23/23 09:04 HPI - Extremity Problem General: Chief complaint: Extremity Injury, Upper Stated complaint: left wrist pain Time Seen by Provider: 06/18/23 21:55 PFSH ED PFSH: Medical History History of gestational hypertension History of gestational diabetes mellitus (GDM) Patient denies medical problems Denies history of: htn,dm,heart,lung,liver,kidney,thyroid,dvt/pe,herpes David-- s/o- w/o herpes hx Anxiety Surgical History History of surgery Wound debridement in left elbow; 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 Procedure done in [place] No history of previous surgery Family History Grandmother Thyroid disease maternal Unknown Patient denies medical problems Denies family history of: breast/ovarian/uterine/colon/prostate cancer,HTN,DM,stroke,heart disease,hypercholesterol Social History Substance/Drug Use: never Course Vital Signs: Vital signs: Vital Signs Temperature 98.0 F 06/18/23 21:48 Pulse Rate 80 06/19/23 00:15 Respiratory Rate 16 06/19/23 00:15 Blood Pressure 153/98 06/18/23 21:48 Pulse Oximetry 97 06/19/23 00:15 Oxygen Delivery Me thod Room Air 06/18/23 21:48 MDM - Extremity (Nontraumatic) Medical Decision Making This patient was seen for left hand pain she reports began just prior to arrival. No trauma or event reported, pain happened spontaneously. Patient's vitals normal and examination revealed some reproducible tenderness to palpa tion. There were no signs of trauma or other concerning symptoms. X-ray evaluation of the left wrist and hand did not demonstrate any signs of fracture or other injuries. I did inform the patient that she continues to have pain despite conservative therapy of RICE, she needs to follow-up with primary care for potential further imaging. Patient's hand is wrapped prior to ED discharge due to relief from compression, and I do believe patient's pain potentially due to sprain versus contusion that patient was not aware she suffered. Patient will be discharged home with return precautions given. Encouraged to take Tylenol for pain. Chart reviewed Lab Data Radiology Impressions Wrist X-Ray 06/18/23 21:34 IMPRESSION: No evidence of acute fracture or dislocation. Hand X-Ray 06/18/23 22:07 IMPRESSION: No evidence of acute fracture or dislocation. Discharge Plan Discharge Patient Disposition: Home Clinical Impression: Strain of hand, left Qualifiers: Encounter type: initial encounter Qualified Code(s): S66.912A - Strain of unspecified muscle, fascia and tendon at wrist and hand level, left hand, initial encounter Condition: Stable Prescriptions: New Tylenol 325 mg tablet 650 mg PO Q6H PRN (Reason: pain) Qty: 60 0RF No Action Gummies 400 mcg-35 mg- 25 mg-5 mg tablet,chewable 1 tab PO DAILY hydrocodone-acetaminophen 5-325 mg Tablet 1 - 2 tab PO Q4H PRN (Reason: Moderate To Severe Pain) Qty: 7 0RF Rx Instructions: Take as directed Discharge Orders: Discharge ED (Routine); Ordered 06/18/23 Ordered By: Edgar Pedroza Referrals: Lina Sims MD [Primary Care Provider] - Discharge Diet: Usual diet Discharge Activity: Increase activity as tolerated Patient Instructions: Hand Sprain (ED) Activity Restrictions/Additional Instructions: Rest, ice, compression, elevation. Take Tylenol for pain. If you continue to have pain, follow-up with primary care for further evaluation. Return if you develop any new concerning symptoms. Coding Level of Care Code ED Supervisor Cartography for Reddy Teixeira
[2023-06-19 00:15] VITALS: PULSE 80; RESP 16; O2SAT 97
== END 2023-06-18 22:43 | disposition home or self-care (01) ==
PROVIDERS: Emergency Provider Physician Assistant; PCP Family Medicine
DX: S66.912A Strain of unspecified muscle, fascia and tendon at wrist and hand level, left hand, initial encounter (principal); X58.XXXA Exposure to other specified factors, initial encounter
CPT/HCPCS: 73110; 73130; 99283

== ENCOUNTER → 2023-09-08 14:36 | Outpatient (BNVA) | payer BC, MEDICAID, SELFPAY | PROVIDERS: PCP Family Medicine; Visit Provider Specialist | DX: G56.03 Carpal tunnel syndrome, bilateral upper limbs (principal) | CPT/HCPCS: 73130 ==

== ENCOUNTER 2023-11-05 22:38 | Emergency (ER) | payer BC, MEDICAID, SELFPAY ==
[2023-11-05 22:56] VITALS: BP 136/97; PULSE 65; RESP 16; TEMP 36.7; O2SAT 95
--- NOTE | 2023-11-05 23:31 | W.ED.EAR ---
HPI - Ear Problem General: Chief complaint: Ear Stated complaint: right ear pain cant hear well Time Seen by Provider: 11/05/23 23:18 Source: patient Mode of arrival: ambulatory Limitations: no limitations History of Present Illness: Patient is a 23-year-old female presents to ED today with complaint of right ear pain that started today. Patient attempted to flush the ear without any improvement. She has not noticed any drainage from the ear. MD Complaint: ear pain and decreased hearing Location: right ear Duration: constant Severity: moderate Relieving factors: nothing Exacerbating factors: nothing Discharge from ear: no Associated symptoms: Reports no associated symptoms and ear or mastoid pain; Denies tinnitus Related Data Previous Rx's Medication Instructions Recorded acetaminophen 325 mg tablet 650 mg (2 x 325 mg) PO Q6H PRN 06/18/23 (Tylenol) pain #60 tabs ibuprofen 600 mg tablet 600 mg PO TID PRN pain #45 tabs 09/17/23 ondansetron 8 mg disintegrating 8 mg PO Q8H PRN nausea and 09/17/23 tablet vomiting 5 days #15 tabs amoxicillin 875 mg-potassium 1 tab PO BID 10 days #20 tabs 11/05/23 clavulanate 125 mg tablet Allergies Allergy/AdvReac Type Severity Reaction Status Date / Time strawberry Allergy ALGY-Difficulty Verified 11/05/23 23:00 Swallowing Review of Systems ENMT: Reports: ear or mastoid pain and change in hearing; Denies: ear discharge, tinnitus, disequilibrium, nasal discharge, nasal congestion or sinus pain [facility] ED PFSH: Medical History History of gestational hypertension History of gestational diabetes mellitus (GDM) Patient denies medical problems Denies history of: htn,dm,heart,lung,liver,kidney,thyroid,dvt/pe,herpes David-- s/o- w/o herpes hx Anxiety Surgical History History of surgery Wound debridement in left elbow; 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 Procedure done in [place] No history of previous surgery Family History Grandmother Thyroid disease maternal Unknown Patient denies medical problems Denies family history of: breast/ovarian/uterine/colon/prostate cancer,HTN,DM,stroke,heart disease,hypercholesterol Social History Smoking and tobacco/nicotine status: never used tobacco/nicotine Substance/Drug Use: never Physical Exam Const: COMMON NORMALS: no acute distress, no limitations, alert and well nourished HENMT: COMMON NORMALS: EAC's normal and Normal external nose present FACE & SINUS: normal facial exam NOSE: Normal external nose present EXTERNAL AUDITORY CANAL: EAC's normal TYMPANIC MEMBRANE: TM abnormal TM laterality: right Details: bulging, dull, erythematous and loss of landmarks Neuro: SENSORIUM/ORIENTATION: Yes alert Course Vital Signs: Vital signs: Vital Signs Temperature 98.1 F 11/05/23 22:56 Pulse Rate 65 11/05/23 22:56 Respiratory Rate 16 11/05/23 22:56 Blood Pressure 136/97 11/05/23 22:56 Pulse Oximetry 95 11/05/23 22:56 Oxygen Delivery Me thod Room Air 11/05/23 22:56 MDM - Ear Medical Decision Making Patient will be placed on antibiotics for treatment of her otitis media. She can follow-up with primary care next week if symptoms persist. Differential Diagnosis Likely otitis media Medical Records I reviewed the patient's medical records. No radiology studies performed this visit Discharge Plan Discharge Patient Disposition: Home Clinical Impression: Acute right otitis media Condition: Stable Prescriptions: New amoxicillin-pot clavulanate 875-125 mg tablet 1 tab PO BID 10 Days Qty: 20 0RF No Action ondansetron 8 mg tablet,disintegrating 8 mg PO Q8H PRN (Reason: nausea and vomiting) 5 Days Qty: 15 0RF ibuprofen 600 mg tablet 600 mg PO TID PRN (Reason: pain) Qty: 45 0RF Tylenol 325 mg tablet 650 mg PO Q6H PRN (Reason: pain) Qty: 60 0RF Discharge Orders: Discharge ED (Routine); Ordered 11/05/23 Ordered By: Gavi Jackson Referrals: Lucien Guadalupe MD [Primary Care Provider] - Patient Instructions: Otitis Media - Adult, Ear Infection (ED) Coding Level of Care Code ED Home Care Companion for Reddy Teixeira
[2023-11-06] MEDS: amoxicillin-clav 875-125 mg Tablet 1 TAB PO (00:09)
[2023-11-06 00:37] VITALS: BP 125/77; PULSE 66; O2SAT 66
== END 2023-11-06 00:38 | disposition home or self-care (01) ==
PROVIDERS: Emergency Provider Physician Assistant; PCP Family Medicine
DX: H66.91 Otitis media, unspecified, right ear (principal)
CPT/HCPCS: 99283